=== PATIENT | female | born 1950 | race Hispanic/Latino ===

== ENCOUNTER 2019-11-06 13:37 | Emergency (ER) | payer OTHER, MEDICARE ==
[2019-11-06 14:08] LABS: BASOPHILS % (AUTO) 0.7 % (0.0-5.0); EOSINOPHILS % (AUTO) 1.3 % (0.0-8.0); HEMATOCRIT 42.6 % (36-48); LYMPHOCYTES % (AUTO) 20.9 % (21.0-51.0); MEAN CORPUSCULAR HEMOGLOBIN 30.9 pg (27.0-33.0); MEAN CORPUSCULAR HGB CONC 33.6 g/dL (32.0-36.0); NEUTROPHILS % (AUTO) 70.9 % (40.0-77.0); PLATELET COUNT (AUTO) 392 K/uL (130-400); RED BLOOD CELL COUNT(AUTO) 4.63 MIL/uL (4.00-5.50); RED CELL DISTRIBUTION WIDTH 13.3 % (11.0-15.5)
[2019-11-06 14:22] LABS: CREATININE 0.8 mg/dL (0.5-1.5); POTASSIUM 4.3 mmol/L (3.5-5.1)
[2019-11-06 14:27] LABS: ALBUMIN 4.2 g/dL (3.5-5.0); BILIRUBIN,TOTAL 0.4 mg/dL (0.2-1.0); TOTAL PROTEIN, SERUM 8.2 g/dL (6.0-8.3)
[2019-11-06] MEDS ORDERED: KETOROLAC TROMETHAMINE 30MG/ML ONE (15:30)
== END 2019-11-06 15:43 | disposition home or self-care (01) ==
LOC: EDH 13:37
DX: R06.02 Shortness of breath (principal); M54.6 Pain in thoracic spine; I10 Essential (primary) hypertension; E78.00 Pure hypercholesterolemia, unspecified; Z85.3 Personal history of malignant neoplasm of breast; Z90.49 Acquired absence of other specified parts of digestive tract
CPT/HCPCS: 36415; 71045; 80053; 82550; 83880; 84484; 85025; 85378; 93005; 96372; 99285; J1885

== ENCOUNTER 2022-09-10 06:43 | Emergency (ER) | payer MEDICARE ==
[~2022-09-10] VITALS: Ht 157.5 cm; Wt 83.6 kg
[2022-09-10 07:28] LABS: APPEARANCE,URINE CLEAR (CLEAR); BILIRUBIN,URINE NEGATIVE (NEGATIVE); COLOR,URINE COLORLESS (YELLOW); GLUCOSE, URINE (UA) NEGATIVE (NEGATIVE); KETONES,URINE NEGATIVE (NEGATIVE); LEUKOCYTE ESTERASE ,URINE 500 Leu/uL (NEGATIVE); NITRATE,URINE NEGATIVE (NEGATIVE); OCCULT BLOOD,URINE NEGATIVE (NEGATIVE); PROTEIN,URINE NEGATIVE (NEGATIVE); UROBILINOGEN,URINE 0.2 mg/dL (0.2-1.0)
[2022-09-10] MEDS ORDERED: ALBUTEROL 0.083% 2.5 MG/3 ML INH IH SCH (07:30)
[2022-09-10 07:32] LABS: SQUAMOUS EPITHELIAL CELL,UR FEW /HPF (0-2); WBC,URINE 26-50 /HPF (0-1)
[2022-09-10 07:42] LABS: BASOPHILS % (AUTO) 0.5 % (0.0-5.0); EOSINOPHILS % (AUTO) 1.6 % (0.0-8.0); HEMATOCRIT 37.9 % (36-48); LYMPHOCYTES % (AUTO) 24.6 % (21.0-51.0); MEAN CORPUSCULAR HEMOGLOBIN 30.7 pg (27.0-33.0); MEAN CORPUSCULAR VOLUME 90.2 fL (79-99); MONOCYTES % (AUTO) 9.5 % (3.0-13.0); NEUTROPHILS % (AUTO) 63.4 % (40.0-77.0); PLATELET COUNT (AUTO) 384 K/uL (130-400); RED CELL DISTRIBUTION WIDTH 13.1 % (11.0-15.5)
[2022-09-10 08:00] LABS: ALBUMIN 4.1 g/dL (3.5-5.0); CREATININE 0.8 mg/dL (0.5-1.5); POTASSIUM 3.4 mmol/L (3.5-5.1); TOTAL PROTEIN, SERUM 7.7 g/dL (6.0-8.3)
[2022-09-10 08:11] LABS: B-TYPE NATRIURETIC PEPTIDE 20 pg/mL (0-100)
[2022-09-10] MEDS ORDERED: IOHEXOL 350 MG/ML 100ML INFUS..BTL IV ONE (10:12)
[2022-09-10] MEDS ORDERED: AUD IH (11:31)
[2022-09-10] MEDS ORDERED: PRED50TA2 PO (11:31)
[2022-09-10] MEDS ORDERED: ALBUHFA IH (11:31)
[2022-09-10 11:54] VITALS: BP 125/72
== END 2022-09-10 11:58 | disposition home or self-care (01) ==
LOC: EDH 06:43
DX: J98.01 Acute bronchospasm (principal); R06.00 Dyspnea, unspecified; I10 Essential (primary) hypertension; E78.00 Pure hypercholesterolemia, unspecified; M19.90 Unspecified osteoarthritis, unspecified site; Z90.49 Acquired absence of other specified parts of digestive tract; Z20.822 Contact with and (suspected) exposure to COVID-19
CPT/HCPCS: 99285; 71270; 71045; 87635; 84484; 80053; 83880; 85025; 87088; 87804 ×2; 81001; 36415; 93005; 94640; C9803; Q9967

== ENCOUNTER 2023-01-05 23:38 | Emergency (ER) | payer MEDICARE ==
[~2023-01-05] VITALS: Ht 165.1 cm; Wt 82.1 kg
[~2023-01-05 23:38] MED LIST: ALBUHFA IH; AMOX875T2 PO; AUD IH; PRED50TA2 PO
[2023-01-05 23:44] VITALS: BP 177/78; PULSE 110; RESP 20
[2023-01-06 00:30] LABS: RAPID GROUP A STREP negative (NEGATIVE)
[2023-01-06 00:31] LABS: SARS-CoV-2, RNA, NAAT POSITIVE SARS CoV-2 (NEGATIVE)
[2023-01-06 00:37] LABS: CREATININE 0.7 mg/dL (0.5-1.5); POTASSIUM 4.2 mmol/L (3.5-5.1)
[2023-01-06 00:40] LABS: INFLUENZA TYPE A Negative For Type A (NEGATIVE); INFLUENZA TYPE B Negative For Type B (NEGATIVE)
[2023-01-06 00:40] LABS: BASOPHILS # (AUTO) 0.04 K/uL (0.00-0.20); BASOPHILS % (AUTO) 0.4 % (0.0-5.0); EOSINOPHILS # (AUTO) 0.08 K/uL (0.00-0.70); EOSINOPHILS % (AUTO) 0.9 % (0.0-8.0); HEMATOCRIT 40.6 % (36-48); IMMATURE GRANULOCYTE ABSOLUTE 0.05 K/uL (0-1); LYMPHOCYTES # (AUTO) 0.7 K/uL (1.0-4.8); LYMPHOCYTES % (AUTO) 7.7 % (21.0-51.0); MEAN CORPUSCULAR HEMOGLOBIN 31.6 pg (27.0-33.0); MEAN CORPUSCULAR HGB CONC 33.5 g/dL (32.0-36.0); MEAN CORPUSCULAR VOLUME 94.4 fL (79-99); MONOCYTES % (AUTO) 11.1 % (3.0-13.0); NEUTROPHILS # (AUTO) 7.4 K/uL (1.8-7.7); NEUTROPHILS % (AUTO) 79.4 % (40.0-77.0); PLATELET COUNT (AUTO) 281 K/uL (130-400); RED CELL DISTRIBUTION WIDTH 13.4 % (11.0-15.5); WHITE BLOOD COUNT (AUTO) 9.3 K/uL (4.8-10.8)
[2023-01-06 00:41] LABS: ALBUMIN 3.9 g/dL (3.5-5.0); BILIRUBIN,TOTAL 0.5 mg/dL (0.2-1.0)
[2023-01-06] MEDS ORDERED: IBUP-1493 PO (01:50)
[2023-01-06] MEDS ORDERED: PRED20TA3 PO (01:50)
[2023-01-06] MEDS ORDERED: ALBU90AE2 IH (01:50)
[2023-01-06] MEDS ORDERED: NIRM1TAB PO (01:50)
== END 2023-01-06 02:14 | disposition home or self-care (01) ==
LOC: EDH 23:38
DX: U07.1 COVID-19 (principal); E78.00 Pure hypercholesterolemia, unspecified; I10 Essential (primary) hypertension; M19.90 Unspecified osteoarthritis, unspecified site; Z79.52 Long term (current) use of systemic steroids; Z85.3 Personal history of malignant neoplasm of breast; Z90.49 Acquired absence of other specified parts of digestive tract
CPT/HCPCS: 99284; 71045; 87635; 80053; 85025; 87880; 87804 ×2; 36415; C9803

== ENCOUNTER 2023-06-11 23:37 | Emergency (ER) | payer MEDICARE ==
[~2023-06-11] VITALS: Ht 152.4 cm; Wt 81.6 kg
[~2023-06-11 23:37] MED LIST changes: +ALBU90AE2 IH; +IBUP-1493 PO; +NIRM1TAB PO; +PRED20TA3 PO
[2023-06-12] MEDS ORDERED: KETOROLAC 60 MG VIAL (30MG/ML) IM ONE (00:30)
[2023-06-12] MEDS ORDERED: IBUP-1493 PO (01:30)
[2023-06-12 02:18] VITALS: BP 132/74; PULSE 78; RESP 20; O2SAT 99
== END 2023-06-12 02:19 | disposition home or self-care (01) ==
LOC: EDH 23:37
DX: S92.352A Displaced fracture of fifth metatarsal bone, left foot, initial encounter for closed fracture (principal); I10 Essential (primary) hypertension; E78.00 Pure hypercholesterolemia, unspecified; M19.90 Unspecified osteoarthritis, unspecified site; Z90.49 Acquired absence of other specified parts of digestive tract; Z79.899 Other long term (current) drug therapy; Z98.890 Other specified postprocedural states; W18.39XA Other fall on same level, initial encounter; Y93.89 Activity, other specified; Y92.89 Other specified places as the place of occurrence of the external cause; Y99.8 Other external cause status
CPT/HCPCS: 99284; 73610 ×2; 73630; 29515; 96372; J1885

== ENCOUNTER 2024-07-20 21:09 | Emergency (ER) | payer MEDICARE ==
[~2024-07-20] VITALS: Ht 165.1 cm; Wt 87.1 kg
[~2024-07-20 21:09] MED LIST changes: -ALBU90AE2 IH; +ALBU90AE3 IH; -ALBUHFA IH; -AMOX875T2 PO; -AUD IH; +DICL20GE TP; +FOSF3PAC4 PO; -NIRM1TAB PO; -PRED20TA3 PO; -PRED50TA2 PO
--- NOTE | 2024-07-20 22:19 | ERN ---
ED Note History of Present Illness Stated Complaint: SWOLLEN LEG Chief Complaint: Knee Injury/Swelling Time Seen by MD: 21:10 Dictation: This is a 74-year-old female who presented to the emergency room with complaints of right knee pain and swelling for the past 2 weeks. She has had this pain for many years and multiple joints hurt all the time however the right knee pain worsened where she is using the cane she took Tylenol at 6:00 p.m.. She reported that she has had multiple injections into her knee in [place]. She denied any recent fall. No fevers chills or rigors. No redness in the joint area Temperature 98.1 pulse 80 respirations 16 blood pressure 166/73 pulse oximetry 96% on room air Her chronic medical problems include hypertension, hypercholesterolemia, right- sided breast cancer status post mastectomy and severe osteoarthritis of multiple joints. Allergies: Coded Allergies: No Known Drug Allergies (Unverified Allergy, Unknown, 11/06/19) Home Meds Active Scripts Tramadol Hcl (Tramadol HCl) 50 Mg Tablet, 50 MG PO TID for pain, #15 TAB Prov:GUICHO YOUSSEF MD 07/20/24 Diclofenac Sodium (Voltaren Arthritis Pain) 1 % Gel..gram., 1 APPL TP BID for 30 Days, #400 GM apply to affected foot Prov:LAUREN LUCAS 08/07/23 Fosfomycin Tromethamine (Fosfomycin Tromethamine) 3 Gram Packet, 3 GM PO ONCE for 1 Day, #1 PKT Prov:LAUREN LUCAS 08/07/23 Ibuprofen (Motrin/Advil) 800 Mg Tab, 800 MG PO TID, #30 TAB Prov:IRMA ELLIS MD 01/06/23 Albuterol Sulfate (Proair Digihaler) 90 Mcg Aer.pw.bas, 2 PUFF IH QID, #1 UNIT Prov:IRMA ELLIS MD 01/06/23 Past Medical History Past Medical History: Cancer (Right breast cancer), High Cholesterol, Hypertension, Other Additional Past Medical Hx: HX BREAST CA Surgical History: Cholecystectomy, BTL Surgical History Other: RT MASTECTOMY Family History: Negative Social History: Negative, Lives with family History: Not Applicable RN Note Reviewed/Agreed w/PFSH: Yes Review of System Dictation Constitutional: Negative for fever,chills, and weight loss Eyes: Negative for injury, pain,redness, and discharge ENT: Negative for injury,pain or swelling Cardiovascular: Negative for chest pain, palpitations, and edema Respiratory: Negative for shortness of breath, cough, and wheezing, Abdomen/GI: Negative for abdominal pain, nausea, vomiting, diarrhea, and constipation Back: Negative for injury and pain : Negative for injury, bleeding and discharge MS/Extremity: Negative for injury and deformity right knee joint pain and having difficulty walking due to pain Skin: Negative for rash, and discoloration Neuro: Negative for headache, weakness, numbness, tingling, and seizure Psych: Negative for suicide ideation, homicidal ideation, and hallucinations Initial Vital Sign VS Vital Signs Date Time Temp Pulse Resp B/P (MAP) Pulse Ox O2 Delivery O2 Flow Rate FiO2 07/20/24 21:10 98.1 80 16 166/73 96 Room Air Physical Exam Dictation General: awake, alert, NAD overweight female Head/Face: Normocephalic, atraumatic Eyes: PERRL, EOMI, vision at baseline ENT: oral cavity clear, TMs clear, no signs of infection Neck: Trachea midline, supple, no nuchal rigidity Cardiovascular: RRR, normal S1/S2, No MRGs, no JVD Respiratory: CTAB, no respiratory distress, No rales or wheezes Abdomen: Soft, non-tender, non-distended, normal bowel sounds, no guarding or rebound. Skin: Warm, dry, normal turgor, no rash MS/Extremity: Pulses equal, no cyanosis, neurovascular intact, FROM both knees appear around the same sized to me no erythema or obvious signs of inflammation. Some tenderness during the range of motion however patient is still able to walk with cane Neuro: COAx4, GCS 15, strength 5/5, CN 2-12 intact, normal cerebellar exam, normal gait, Psych: Normal behavior, mood, and affect normal Extremities-trace edema without any palpable cords, Homans sign is negative Results (Laboratory/Radiology) Labs Reviewed?: Yes ED Course ED Course Orders Procedure Category Date Status Time Knee 3vws Rt RAD 07/20/24 Taken 21:21 Ketorolac PHA 07/20/24 Complete Tromethamine 30mg/Ml 22:30 Current Medications Medications (Trade) Dose Ordered Sig/Tito Route PRN Reason Start Time Stop Time Status Last Admin Dose Admin Ketorolac Tromethamine (toRADol) 30 mg ONCE ONCE IM 07/20/24 22:30 07/20/24 22:31 DC 07/20/24 23:09 Vital Signs Date Time Temp Pulse Resp B/P (MAP) Pulse Ox O2 Delivery O2 Flow Rate FiO2 07/20/24 21:10 98.1 80 16 166/73 96 Room Air We will perform imaging and administer medications according to the patient's complaint. Once the results are available, will review and personally interpreted the labs to rule out any acute life-threatening emergency the trach require immediate intervention and treatment. I will then re-evaluate the patient after treatment and diagnostic exams have return to determine whether the patient requires any further testing, can safely be discharged home or need further admission to hospital for additional treatment and evaluation. 11:00 p.m. patient had right knee x-ray that shows severe joint space narrowing no evidence of any soft tissue swelling and I did not appreciate any obvious fractures or dislocations. I had a long discussion with the patient and family member and updated them on the x-ray findings as well as referral to orthopedic surgery. JULIANO Zarco for now until she sees the orthopedic fashion and her PCP Medical Decision Making MDM MDM: Differential diagnosis: Osteoarthritis, joint effusion, hematoma, fracture or dislocation Rationale: Tests considered and ordered secondary to shared decision making include: Previous outside records reviewed: Old ER visits. Risk of complication and/or morbidity or mortality of patient management: None Medications-Per medication reconciliation Need for hospitalization: Patient does not meet criteria for hospitalization. Need for emergency major/minor surgery: No There are no social concerns with this patient. Prescription drug management Prescriptions will include symptomatic care Patient's prior external medical records from other ER visits were reviewed by me as indicated. Prior testing and results from previous visits were reviewed. Prior tests were taken into account with medical decision making and resource utilization, independent historian/historians were used to obtain complete medical history. I independently interpreted the test that were performed, results were reviewed by me and considered findings on radiology if ordered. Medical management and examination interpretation discussions were had by me with other qualified healthcare professionals as indicated for the patient's care. Problem List Problem List: (1) Primary osteoarthritis of right knee (2) Chronic pain of right knee DX & DISP Disposition: Discharge Departure Impression: Primary Impression: Primary osteoarthritis of right knee Additional Impression: Chronic pain of right knee Condition: Stable Scripts Tramadol Hcl (Tramadol HCl) 50 Mg Tablet 50 MG PO TID for pain, #15 TAB Prov: GUICHO YOUSSEF MD 07/20/24 Additional Instructions: Patient and the caregiver have been informed of all the diagnostic tests and the imaging conducted during the today's visit to the emergency room and has verbalized understanding of the results I have personally reviewed and interpreted all diagnostic exams performed here in the ER today as well as the vital signs documented by the nursing staff. The patient is now being discharged to home and should follow up with the primary care physician or the specialist as directed by the ER staff. Follow-up with primary care provider in 1 to 2 days. Take medications as directed here in the emergency room. Okay to continue home medications unless otherwise discussed during your visit in the emergency room today. Return to your nearest emergency room if symptoms worsen or if there is no improvement. Call 911 if you need immediate assistance. Take Tylenol or Motrin [id number] as needed and if no contraindications are present. Increase oral hydration. A wound culture or urine culture was ordered here in the emergency room department please follow-up with primary care provider and advise them to get repeat ports from our facility. If you had any Dino wrap/splints that were applied here, please do not remove them until you see your primary care or specialty. Referrals: SAMARA PRABHAKAR MD (PCP) ELENI WILLSON MD, ANURADHA R MD Jul 20, 2024 22:19
--- NOTE | 2024-07-20 22:23 | NUR ---
PT SITTING ALONG WINDOWS WITH FAMILY. GOOD CHEST RISE AND FALL NOTED. NO ACUTE DISTRESS NOTED AT THIS TIME
[2024-07-20] MEDS: ketOROlac 30MG VIAL (30MG/ML) IM ONE (23:09)
[2024-07-20] MEDS ORDERED: TRAM50TA4 PO (23:29)
[2024-07-20 23:33] VITALS: BP 158/75; PULSE 82; RESP 17; TEMP 98.4; O2SAT 97
--- NOTE | 2024-07-21 08:52 | HMCIMG ---
Exam Type: KNEE 3VWS RT Clinical Information: pain and swelling of Knee joint Comparison: None Findings: The bone examination is unremarkable. No fractures or dislocations are seen. No radiopaque foreign bodies are noted. Soft tissues are preserved. IMPRESSION: Normal examination.
== END 2024-07-20 23:39 | disposition home or self-care (01) ==
LOC: EDH 21:09
DX: M17.11 Unilateral primary osteoarthritis, right knee (principal); G89.29 Other chronic pain; M25.561 Pain in right knee; E78.00 Pure hypercholesterolemia, unspecified; I10 Essential (primary) hypertension; Z79.1 Long term (current) use of non-steroidal anti-inflammatories (NSAID); Z90.49 Acquired absence of other specified parts of digestive tract; Z98.51 Tubal ligation status
CPT/HCPCS: 99283; 73562; 96372; J1885

== ENCOUNTER 2024-07-25 20:54 | Emergency (ER) | payer MEDICARE ==
[~2024-07-25] VITALS: Ht 165.1 cm; Wt 86.2 kg
[~2024-07-25 20:54] MED LIST changes: +TRAM50TA4 PO
--- NOTE | 2024-07-25 21:19 | ERN ---
ED Note History of Present Illness Stated Complaint: DIZZINESS Chief Complaint: Dizzy/Light Headed Time Seen by MD: 21:15 Time Seen by Midlevel: 21:17 Dictation: Ms Burk is a 74 year old female with history of hypertension, arthritis, breast cancer, and obesity who wanted to the emergency department this evening with her daughter for evaluation of dizziness. She reports three days of dizziness and lightheadedness numbness. She states she feels like she is wobbly worse with position change. Over the past 24 hours the symptoms have worsened and she feels like she may have had a fever at home, diffuse abdominal pain, nausea, vomiting, and intermittent chest pain. No report of congestion, sore throat, shortness of breath, cough, palpitations, edema, hematemesis, melena, hematochezia, constipation, diarrhea, dysuria, headache, or focal weakness paresthesia. She denies history of stroke or heart attack. She denies history of previous episodes of dizziness. PCP: Dr. Samara Rodrigues in [place] Allergies: Coded Allergies: No Known Drug Allergies (Unverified Allergy, Unknown, 11/06/19) Home Meds Active Scripts Tramadol Hcl (Tramadol HCl) 50 Mg Tablet, 50 MG PO TID for pain, #15 TAB Prov:GUICHO SOFIA MD 07/20/24 Diclofenac Sodium (Voltaren Arthritis Pain) 1 % Gel..gram., 1 APPL TP BID for 30 Days, #400 GM apply to affected foot Prov:LAUREN LUCAS 08/07/23 Fosfomycin Tromethamine (Fosfomycin Tromethamine) 3 Gram Packet, 3 GM PO ONCE for 1 Day, #1 PKT Prov:LAUREN LUCAS 08/07/23 Ibuprofen (Motrin/Advil) 800 Mg Tab, 800 MG PO TID, #30 TAB Prov:IRMA ELLIS MD 01/06/23 Albuterol Sulfate (Proair Digihaler) 90 Mcg Aer.pw.bas, 2 PUFF IH QID, #1 UNIT Prov:IRMA ELLIS MD 01/06/23 Past Medical History Past Medical History: Arthritis, Hypertension Additional Past Medical Hx: HX BREAST CA Surgical History: Hysterectomy, Cholecystectomy, Other Surgical History Other: RIGHT MASTECTOMY Family History: Negative Social History: Negative, Lives with family History: Not Applicable RN Note Reviewed/Agreed w/PFSH: Yes Review of System Dictation REVIEW OF SYSTEMS: CONSTITUTIONAL: Patient denies chills, sweats and weight changes. Reports fatigue, general weakness, and felt like she may have had a fever while at home EYES: Patient denies any visual symptoms. EARS, NOSE, AND THROAT: No difficulties with hearing. No symptoms of rhinitis or sore throat. CARDIOVASCULAR: Patient denies palpitations, orthopnea and paroxysmal nocturnal dyspnea. Reports intermittent non radiating chest pain RESPIRATORY: No dyspnea on exertion, no wheezing or cough. GI: No diarrhea, constipation, hematochezia or melena. Reports nonspecific diffuse abdominal pain with nausea and emesis x1 : No urinary hesitancy or dribbling. No nocturia or urinary frequency. No abnormal urethral discharge. MUSCULOSKELETAL: No myalgias or arthralgias. NEUROLOGIC: No chronic headaches, no seizures. Patient denies numbness, tingling or weakness. Denies dysarthria or dysphasia. Denies visual disturbance. Reports lightheadedness/dizziness worse with position change. PSYCHIATRIC: Patient denies problems with mood disturbance. No problems with anxiety. ENDOCRINE: No excessive urination or excessive thirst. DERMATOLOGIC: Patient denies any rashes or skin changes. Initial Vital Sign VS Vital Signs Date Time Temp Pulse Resp B/P (MAP) Pulse Ox O2 Delivery O2 Flow Rate FiO2 07/25/24 20:55 97.3 91 20 173/83 97 Room Air 07/25/24 22:33 0 21 Physical Exam Dictation Vital signs: Reviewed. Afebrile Constitutional: No acute distress. Non-toxic appearing. Head/Face: Normocephalic, atraumatic. Eyes: Periorbital areas with no swelling, redness, or edema. Lids and lashes are normal. Conjunctival injection is absent. Sclera anicteric. Pupils equal, round, reactive to light. ENT: Pinnas intact and no signs of trauma or erythema. Ear canals clear and no discharge. TMs no erythema. No nasal discharge or bleeding noted. Oropharynx with no exudate, redness, swelling, masses, exudates, or evidence of obstruction. Uvula midline. Mucous membranes moist. Neck: Trachea midline, no masses palpated, and no cervical lymphadenopathy. No swelling. Supple, full range of motion. Chest/Axilla: No tenderness, no crepitus, no paradoxical movement, no retractions. Cardiovascular: Regular rate, regular rhythm, no murmur, no gallops. Symmetric pulses. No peripheral edema. Blood pressure elevated 173/83. Twelve lead EKG reflects a sinus rhythm without ST elevation or depression. No chest pain at this time. Respiratory: Respirations even and unlabored. Lung sounds clear; no wheezes, rales or rhonchi. Room air SpO2 97% Gastrointestinal: Obese No distention is appreciated. Bowel sounds are normal. No mass or organomegaly . There is no tenderness. No rebound. No rigidity. No voluntary or involuntary guarding. No Jiménez's sign. Neurological: Normal speech, gross motor function intact, gross sensory functi on intact. No focal weakness/Paresthesia. NIHSS=0. Musculoskeletal/Extremities: All extremities have full range of motion, no pain or tenderness on palpation. Symmetric pulses. Ambulating with steady gait; uses a cane. Integumentary: Intact. Skin is normal color, warm and dry. Cap refill less than 3 seconds. Results (Laboratory/Radiology) Laboratory/Radiology Laboratory Tests Test 07/25/24 21:30 07/25/24 22:31 07/26/24 00:03 White Blood Count 8.8 K/uL (4.8-10.8) Red Blood Count 4.07 MIL/uL (4.00-5.50) Hemoglobin 12.6 g/dL (12.0-16.0) Hematocrit 37.8 % (36-48) Mean Corpuscular Volume 92.9 fL (79-99) Mean Corpuscular Hemoglobin 31.0 pg (27.0-33.0) Mean Corpuscular Hemoglobin Concent 33.3 g/dL (32.0-36.0) Red Cell Distribution Width 12.9 % (11.0-15.5) Platelet Count 467 K/uL (130-400) H Mean Platelet Volume 10.0 fL (7.5-10.5) Immature Granulocyte % (Auto) 0.2 % (0-1) Neutrophils (%) (Auto) 64.1 % (40.0-77.0) Lymphocytes (%) (Auto) 23.5 % (21.0-51.0) Monocytes (%) (Auto) 9.7 % (3.0-13.0) Eosinophils (%) (Auto) 1.9 % (0.0-8.0) Basophils (%) (Auto) 0.6 % (0.0-5.0) Neutrophils # (Auto) 5.6 K/uL (1.8-7.7) Lymphocytes # (Auto) 2.1 K/uL (1.0-4.8) Monocytes # (Auto) 0.9 K/uL (0.1-1.0) Eosinophils # (Auto) 0.17 K/uL (0.00-0.70) Basophils # (Auto) 0.05 K/uL (0.00-0.20) Absolute Immature Granulocyte (auto 0.02 K/uL (0-1) Nucleated Red Blood Cells 0.0 % (0.0-0.19) Sodium Level 132 mmol/L (136-145) L Potassium Level 3.9 mmol/L (3.5-5.1) Chloride Level 97 mmol/L (101-111) L Carbon Dioxide Level 27 mmol/L (21-32) Blood Urea Nitrogen 14 mg/dL (7-18) Creatinine 1.0 mg/dL (0.5-1.0) Glomerular Filtration Rate Calc 59 mL/min (>90) Random Glucose 112 mg/dL (70-105) H Total Calcium 9.4 mg/dL (8.5-10.1) Troponin I High Sensitivity 4 ng/L (4-50) B-Type Natriuretic Peptide 15 pg/mL (0-100) Influenza Type A Antigen NEGATIVE FOR TYPE A Influenza Type B Antigen NEGATIVE FOR TYPE B SARS-CoV-2, RNA, NAAT POSITIVE SARS CoV-2 Urine Color COLORLESS (YELLOW) Urine Appearance CLEAR (CLEAR) Urine pH 5.5 (5.0-8.0) Urine Specific [place] 1.004 (1.001-1.031) Urine Protein NEGATIVE mg/dL (NEGATIVE) Urine Glucose (UA) NEGATIVE mg/dL (NEGATIVE) Urine Ketones NEGATIVE mg/dL (NEGATIVE) Urine Occult Blood NEGATIVE (NEGATIVE) Urine Nitrate NEGATIVE (NEGATIVE) Urine Bilirubin NEGATIVE mg/dL (NEGATIVE) Urine Urobilinogen 0.2 mg/dL (0.2-1.0) Urine Leukocyte Esterase 250 Kirstie/uL (NEGATIVE) H Urine RBC 0-1 /HPF (0-1) Urine WBC 11-25 /HPF (0-1) H Urine Squamous Epithelial Cells RARE /HPF (0-2) Urine Bacteria MANY /HPF (None Seen) Labs Reviewed?: Yes EKG Comment: EKG Interpretation: Time Reviewed: 2123 Ventricular rate: 76 bpm VT Interval: 194 ms QRS duration: [1000] ms No ST segment elevation or depression. Clinical impression: Sinus rhythm EKG Reviewed and interpreted by Dr. Selena Sofia CT Scan Comment: PATIENT: SHARMIN BURK MR#: [id number] : 1950 SEX: F AGE: 74 LOCATION: [facility] ORDER 18 STATUS: [facility] REPORT#: [id number] SERVICE 17 REASON: dizziness, persistent ORDERING PHYSICIAN: LUIS MANUEL HECK NP PROCEDURE: HEAD WO - CT HEAD/BRAIN W/O CONTRAST CT HEAD/BRAIN W/O CONTRAST HISTORY: Dizziness COMPARISON: None TECHNIQUE: Multiple sequential axial images of the head were obtained from the base of the skull through vertex. Patient was not given contrast through intravenous route. FINDINGS: The ventricles and extraventricular CSF spaces are dilated consistent with cerebral atrophy. Nonspecific white matter changes seen. There is no midline shift, mass effect or herniation. No acute intracranial bleed is seen. Visualized portion of the paranasal sinuses are grossly within normal limits. IMPRESSION: 1. No acute intracranial bleed is seen. 2. Atrophy with white matter changes. CT was performed with one or more following dose reduction techniques: automated exposure control, adjustment of the mA and kv according to patient's size, or use of a iterative reconstruction technique. DICTATED BY: ELFEGO DAVIS MD DATE: 07/25/242216 ELECTRONICALLY SIGNED BY: ELFEGO DAVIS MD DATE: 07/25/242222 ED Course ED Course Orders Procedure Category Date Status Time Ct Head/Brain W/O CT 07/25/24 Resulted Contrast 21:18 Cbc With Differential LAB 07/25/24 Complete 21:18 Basic Metabolic Panel LAB 07/25/24 Complete 21:18 Troponin I High LAB 07/25/24 Complete Sensitivity 21:18 12 Lead Ekg Tracing- EKG 07/25/24 Complete Technical 21:18 Urinalysis Profile LAB 07/25/24 Complete 21:18 B-Type Natriuretic LAB 07/25/24 Complete Peptide 21:23 Influenza Type A & B, LAB 07/25/24 Complete Rapid 21:23 Covid Rna Naat LAB 07/25/24 Complete 21:23 0.9% Nacl 500ml PHA 07/25/24 Complete Iv.Soln (Ns 500ml 23:00 Culture Urine GABBI 07/26/24 In Process 00:32 Current Medications Medications (Trade) Dose Ordered Sig/Tito Route PRN Reason Start Time Stop Time Status Last Admin Dose Admin Sodium Chloride 500 ml @ 0 mls/hr ONCE ONCE IV 07/25/24 23:00 07/25/24 23:01 DC 07/26/24 00:08 Vital Signs Date Time Temp Pulse Resp B/P (MAP) Pulse Ox O2 Delivery O2 Flow Rate FiO2 07/26/24 00:17 98.2 62 18 110/67 96 Room Air* 0 21 07/25/24 22:33 98.4 71 17 137/53 96 Room Air* 0 21 07/25/24 20:55 97.3 91 20 173/83 97 Room Air Uneventful ED course. Vital signs stable; afebrile and normotensive with room air SpO2 96-97%. CT head negative for ic hemorrhage. Laboratory findings as noted below. Influenza A/B negative. Positive COVID. Troponin is not elevated BNP is not elevated. WBCs are not elevated. H&H are stable. No electrolyte derangement. UA + leukocyte esterase, and UWBC 11-25; culture pending. While in the emergency department she received dose NS 500 mL IV as bolus and states she is feeling better. She also received initial dose of antibiotics Rocephin1 g IV. She will be discharged to home with family. Medical Decision Making MDM MDM: Differential diagnosis: Influenza, COVID, UTI, intracranial hemorrhage Rationale: Tests considered and ordered secondary to shared decision making include: Lab, UA, EKG, CT scan Previous outside records reviewed: Old ER visits. Risk of complication and/or morbidity or mortality of patient management: None Medications-Per medication reconciliation Need for hospitalization: Patient does not meet criteria for hospitalization. Need for emergency major/minor surgery: No There are no social concerns with this patient. Prescription drug management: Nitrofurantoin, ondansetron Prescriptions will include symptomatic care Patient's prior external medical records from other ER visits were reviewed by me as indicated. Prior testing and results from previous visits were reviewed. Prior tests were taken into account with medical decision making and resource utilization, independent historian/historians were used to obtain complete medical history. I independently interpreted the test that were performed, results were reviewed by me and considered findings on radiology if ordered. Medical management and examination interpretation discussions were had by me with other qualified healthcare professionals as indicated for the patient's care. DX & DISP Disposition: Discharge Departure Impression: Primary Impression: Viral infection Additional Impressions: COVID-19, Mild dehydration, Dizziness, UTI (urinary tract infection) Condition: Stable Scripts Ondansetron (Ondansetron Odt) 4 Mg Tab.rapdis 4 MG PO Q6HPRN PRN for nausea, #15 TAB 0 Refills Prov: LUIS MANUEL HECK NP 07/26/24 Nitrofurantoin Macrocrystal (Nitrofurantoin) 100 Mg Capsule 1 CAP PO BID for 7 Days, #14 CAP 0 Refills Prov: LUIS MANUEL HECK NP 07/26/24 Additional Instructions: Rest. Isolate at home until symptoms are resolving and your fever free times 24 hour. Drink plenty of fluids. May take Zofran ODT as needed for nausea. May take [id number]-[id number] Tylenol or ibuprofen as needed for fever or discomfort. Referrals: SAMARA RODRIGUES MD (PCP) Time of Disposition: 23:55 LUIS MANUEL HECK NP Jul 25, 2024 21:19
--- NOTE | 2024-07-25 21:27 | EKG ---
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
[2024-07-25 21:55] LABS: BASOPHILS # (AUTO) 0.05 K/uL (0.00-0.20); BASOPHILS % (AUTO) 0.6 % (0.0-5.0); EOSINOPHILS # (AUTO) 0.17 K/uL (0.00-0.70); EOSINOPHILS % (AUTO) 1.9 % (0.0-8.0); HEMATOCRIT 37.8 % (36-48); IMMATURE GRANULOCYTE ABSOLUTE 0.02 K/uL (0-1); LYMPHOCYTES # (AUTO) 2.1 K/uL (1.0-4.8); LYMPHOCYTES % (AUTO) 23.5 % (21.0-51.0); MEAN CORPUSCULAR HGB CONC 33.3 g/dL (32.0-36.0); MEAN CORPUSCULAR VOLUME 92.9 fL (79-99); MONOCYTES # (AUTO) 0.9 K/uL (0.1-1.0); MONOCYTES % (AUTO) 9.7 % (3.0-13.0); NEUTROPHILS # (AUTO) 5.6 K/uL (1.8-7.7); NEUTROPHILS % (AUTO) 64.1 % (40.0-77.0); PLATELET COUNT (AUTO) 467 K/uL (130-400); RED BLOOD CELL COUNT(AUTO) 4.07 MIL/uL (4.00-5.50); RED CELL DISTRIBUTION WIDTH 12.9 % (11.0-15.5); WHITE BLOOD COUNT (AUTO) 8.8 K/uL (4.8-10.8)
[2024-07-25 21:59] LABS: POTASSIUM 3.9 mmol/L (3.5-5.1)
--- NOTE | 2024-07-25 22:23 | HMCIMG ---
CT HEAD/BRAIN W/O CONTRAST HISTORY: Dizziness COMPARISON: None TECHNIQUE: Multiple sequential axial images of the head were obtained from the base of the skull through vertex. Patient was not given contrast through intravenous route. FINDINGS: The ventricles and extraventricular CSF spaces are dilated consistent with cerebral atrophy. Nonspecific white matter changes seen. There is no midline shift, mass effect or herniation. No acute intracranial bleed is seen. Visualized portion of the paranasal sinuses are grossly within normal limits. IMPRESSION: 1. No acute intracranial bleed is seen. 2. Atrophy with white matter changes. CT was performed with one or more following dose reduction techniques: automated exposure control, adjustment of the mA and kv according to patient's size, or use of a iterative reconstruction technique.
[2024-07-25 22:59] LABS: SARS-CoV-2, RNA, NAAT POSITIVE SARS CoV-2 (NEGATIVE)
[2024-07-25 23:15] LABS: INFLUENZA TYPE A NEGATIVE FOR TYPE A (NEGATIVE); INFLUENZA TYPE B NEGATIVE FOR TYPE B (NEGATIVE)
[2024-07-26] MEDS: 0.9% NACL 500ML IV.SOLN 500 ML IV ONE (00:08)
[2024-07-26 00:23] LABS: APPEARANCE,URINE CLEAR (CLEAR); BILIRUBIN,URINE NEGATIVE (NEGATIVE); COLOR,URINE COLORLESS (YELLOW); GLUCOSE, URINE (UA) NEGATIVE (NEGATIVE); KETONES,URINE NEGATIVE (NEGATIVE); LEUKOCYTE ESTERASE ,URINE 250 Leu/uL (NEGATIVE); NITRATE,URINE NEGATIVE (NEGATIVE); OCCULT BLOOD,URINE NEGATIVE (NEGATIVE); PH,URINE 5.5 (5.0-8.0); PROTEIN,URINE NEGATIVE (NEGATIVE); UROBILINOGEN,URINE 0.2 mg/dL (0.2-1.0)
[2024-07-26 00:32] LABS: ADD UA MICROSCOPIC YES
[2024-07-26 00:38] LABS: BACTERIA,URINE MANY /HPF (None Seen); MUCUS,URINE RARE LPF (None Seen); RBC,URINE 0-1 /HPF (0-1); SQUAMOUS EPITHELIAL CELL,UR RARE /HPF (0-2)
[2024-07-26] MEDS ORDERED: ONDA-243 PO (00:50)
[2024-07-26] MEDS ORDERED: NITR100C PO (00:50)
[2024-07-26] MEDS: cefTRIAXone 1G VIAL IVPB ONE (01:19)
[2024-07-26 01:32] VITALS: BP 119/59; PULSE 57; RESP 17; TEMP 98.3; O2SAT 96
== END 2024-07-26 01:37 | disposition home or self-care (01) ==
LOC: EDH 20:54
DX: U07.1 COVID-19 (principal); B34.9 Viral infection, unspecified; E86.0 Dehydration; R42 Dizziness and giddiness; N39.0 Urinary tract infection, site not specified; I10 Essential (primary) hypertension; M19.90 Unspecified osteoarthritis, unspecified site; Z79.1 Long term (current) use of non-steroidal anti-inflammatories (NSAID); Z85.3 Personal history of malignant neoplasm of breast; Z90.49 Acquired absence of other specified parts of digestive tract; Z90.710 Acquired absence of both cervix and uterus
CPT/HCPCS: 99285; 70450; 87635; 84484; 80048; 83880; 85025; 87086 ×2; 87186; 87804 ×2; 81001; 36415; 93005; 96374; J7040; J0696

== ENCOUNTER 2024-12-19 14:36 | Inpatient (IN) | payer MEDICARE, MEDICAID ==
[~2024-12-19] VITALS: Ht 165.1 cm; Wt 83.5 kg
[~2024-12-19 14:36] MED LIST changes: +NITR100C PO; +ONDA-243 PO
[2024-12-19 15:12] LABS: IMMATURE GRANULOCYTE ABSOLUTE 0.07 K/uL (0-1); NUCLEATED RED BLOOD CELLS 0.0 % (0.0-0.19); PLATELET COUNT (AUTO) 380 K/uL (130-400); RED BLOOD CELL COUNT(AUTO) 3.72 MIL/uL (4.00-5.50); RED CELL DISTRIBUTION WIDTH 13.8 % (11.0-15.5); WHITE BLOOD COUNT (AUTO) 14.1 K/uL (4.8-10.8)
[2024-12-19 15:19] LABS: CREATININE 0.9 mg/dL (0.5-1.0); GLOMERULAR FILTR. RATE CALC 67.0 mL/min (>90); GLUCOSE,RANDOM 89.0 mg/dL (70-105); SODIUM SERUM 138.0 mmol/L (136-145); UREA NITROGEN, BLOOD 11.0 mg/dL (7-18)
--- NOTE | 2024-12-19 16:19 | HMCIMG ---
EXAM: US Chest Limited, Evaluate for Pleural Effusion. CLINICAL HISTORY: left breast wound TECHNIQUE: Real-time ultrasound of the chest to evaluate for pleural effusion. COMPARISON: None provided. FINDINGS: There is a 2.1 x 1.4 x 0.6 cm complex fluid collection in the left chest wall which may be due to abscess and/or hematoma. IMPRESSION: As above. /[place]
--- NOTE | 2024-12-19 16:44 | ERN ---
General Chief Complaint: Abscess Stated Complaint: ABSCESS Time Seen by MD: 14:38 Source: patient History of Present Illness Initial Comments Patient is a 70-year-old female coming in a left breast patient was told that she had an abscess Allergies: Coded Allergies: No Known Drug Allergies (Unverified Allergy, Unknown, 11/06/19) Home Meds Active Scripts Nitrofurantoin Macrocrystal (Nitrofurantoin) 100 Mg Capsule, 1 CAP PO BID for 7 Days, #14 CAP 0 Refills Prov:GUICHO YOUSSEF MD 11/16/24 Ondansetron (Ondansetron Odt) 4 Mg Tab.rapdis, 4 MG PO Q6HPRN PRN for nausea, #15 TAB 0 Refills Prov:LUIS MANUEL HECK NP 07/26/24 Nitrofurantoin Macrocrystal (Nitrofurantoin) 100 Mg Capsule, 1 CAP PO BID for 7 Days, #14 CAP 0 Refills Prov:LUIS MANUEL HECK NP 07/26/24 Tramadol Hcl (Tramadol HCl) 50 Mg Tablet, 50 MG PO TID for pain, #15 TAB Prov:GUICHO YOUSSEF MD 07/20/24 Diclofenac Sodium (Voltaren Arthritis Pain) 1 % Gel..gram., 1 APPL TP BID for 30 Days, #400 GM apply to affected foot Prov:LAUREN LUCAS 08/07/23 Fosfomycin Tromethamine (Fosfomycin Tromethamine) 3 Gram Packet, 3 GM PO ONCE for 1 Day, #1 PKT Prov:LAUREN LUCAS 08/07/23 Ibuprofen (Motrin/Advil) 800 Mg Tab, 800 MG PO TID, #30 TAB Prov:IRMA ELLIS MD 01/06/23 Albuterol Sulfate (Proair Digihaler) 90 Mcg Aer.pw.bas, 2 PUFF IH QID, #1 UNIT Prov:IRMA ELLIS MD 01/06/23 Past Medical History Past Medical History: Arthritis, High Cholesterol, Hypertension Medical History Other: HX BREAST CA, RIGHT Past Surgical History: Hysterectomy, Cholecystectomy, Other Surgical History Other: RIGHT MASTECTOMY Family History Family History: Negative Social History Social History: Negative, Lives with family Female( History) History: Not Applicable Results Laboratory and Microbiology Lab and Micro Result Laboratory Tests Test 12/19/24 15:05 White Blood Count 14.1 K/uL (4.8-10.8) H Red Blood Count 3.72 MIL/uL (4.00-5.50) L Hemoglobin 11.9 g/dL (12.0-16.0) L Hematocrit 35.1 % (36-48) L Mean Corpuscular Volume 94.4 fL (79-99) Mean Corpuscular Hemoglobin 32.0 pg (27.0-33.0) Mean Corpuscular Hemoglobin Concent 33.9 g/dL (32.0-36.0) Red Cell Distribution Width 13.8 % (11.0-15.5) Platelet Count 380 K/uL (130-400) Mean Platelet Volume 9.7 fL (7.5-10.5) Immature Granulocyte % (Auto) 0.5 % (0-1) Neutrophils (%) (Auto) 74.8 % (40.0-77.0) Lymphocytes (%) (Auto) 15.3 % (21.0-51.0) L Monocytes (%) (Auto) 7.6 % (3.0-13.0) Eosinophils (%) (Auto) 1.4 % (0.0-8.0) Basophils (%) (Auto) 0.4 % (0.0-5.0) Neutrophils # (Auto) 10.6 K/uL (1.8-7.7) H Lymphocytes # (Auto) 2.2 K/uL (1.0-4.8) Monocytes # (Auto) 1.1 K/uL (0.1-1.0) H Eosinophils # (Auto) 0.20 K/uL (0.00-0.70) Basophils # (Auto) 0.06 K/uL (0.00-0.20) Absolute Immature Granulocyte (auto 0.07 K/uL (0-1) Nucleated Red Blood Cells 0.0 % (0.0-0.19) Sodium Level 138 mmol/L (136-145) Potassium Level 4.4 mmol/L (3.5-5.1) Chloride Level 103 mmol/L (101-111) Carbon Dioxide Level 26 mmol/L (21-32) Blood Urea Nitrogen 11 mg/dL (7-18) Creatinine 0.9 mg/dL (0.5-1.0) Glomerular Filtration Rate Calc 67 mL/min (>90) Random Glucose 89 mg/dL (70-105) Total Calcium 8.9 mg/dL (8.5-10.1) EKG/XRAY/US/CT/MRI Ultrasound Comment IMAGING REPORT Signed PATIENT: SHARMIN DIALLO MR#: [id number] : 1950 SEX: F AGE: 74 LOCATION: [facility] ORDER 55 STATUS: [facility] ER REPORT#: [id number] SERVICE 54 REASON: left breast wound ORDERING PHYSICIAN: CLEMENTE VENCES MD PROCEDURE: CHEST SCAN - US CHEST WALL SOFT TISSUE EXAM: US Chest Limited, Evaluate for Pleural Effusion. CLINICAL HISTORY: left breast wound TECHNIQUE: Real-time ultrasound of the chest to evaluate for pleural effusion. COMPARISON: None provided. FINDINGS: There is a 2.1 x 1.4 x 0.6 cm complex fluid collection in the left chest wall which may be due to abscess and/or hematoma. IMPRESSION: As above. /Surfside DICTATED BY: IVY CARROLL MD DATE: 12/19/241717 ELECTRONICALLY SIGNED BY: IVY CARROLL MD DATE: 12/19/241717 [facility] MDM: Differential diagnosis: Abscess, wound evaluation, diabetic mellitus, Rationale: Tests considered and ordered secondary to shared decision making include: labs, ECG and radiology Previous outside records reviewed: Old ER visits. Risk of complication and/or morbidity or mortality of patient management: None Medications-Per medication reconciliation Need for hospitalization: Patient does meet criteria for hospitalization. Need for emergency major/minor surgery: No There are no social concerns with this patient. Prescription drug management Prescriptions will include symptomatic care Patient's prior external medical records from other ER visits were reviewed by me as indicated. Prior testing and results from previous visits were reviewed. Prior tests were taken into account with medical decision making and resource utilization, independent historian/historians were used to obtain complete medical history. I independently interpreted the test that were performed, results were reviewed by me and considered findings on radiology if ordered. Medical management and examination interpretation discussions were had by me with other qualified healthcare professionals as indicated for the patient's care. Patient will be admitted under the care of hospitalist group for ongoing management. ED Course Orders Procedure Category Date Status Time Cbc With Differential LAB 12/19/24 Complete 14:55 Basic Metabolic Panel LAB 12/19/24 Complete 14:55 Us Chest Wall Soft US 12/19/24 Resulted Tissue 14:55 Lidocaine Hcl 1% 20ml PHA 12/19/24 Complete Vial (Lidocaine Hc 16:39 Ceftriaxone 1g Vial PHA 12/19/24 Logged (Rocephine 1g Inj) 18:30 Tetanus,Diphtheria PHA 12/19/24 Logged Tox [Adult] (Diphther 18:30 Aerobic Culture GABBI 12/19/24 Logged 18:16 Anaerobic Culture GABBI 12/19/24 Logged 18:16 Current Medications Medications (Trade) Dose Ordered Sig/Tito Route PRN Reason Start Time Stop Time Status Last Admin Dose Admin Ceftriaxone Sodium (ROCEphine 1G INJ) 1 gm ONCE ONCE IVPB 12/19/24 18:30 12/19/24 18:31 UNV Lidocaine HCl (Lidocaine HCl 1% 20ml Vial) 20 ml ONCE STAT INJ 12/19/24 16:39 12/19/24 16:43 DC 12/19/24 17:12 Tetanus/ Diphtheria Toxoids Adsorbed (DiphthERIA-teTANUS TOXOID [ADULT]/ DECAVAC) 0.5 ml ONCE ONCE IM 12/19/24 18:30 12/19/24 18:31 UNV Vital Signs Date Time Temp Pulse Resp B/P (MAP) Pulse Ox O2 Delivery O2 Flow Rate FiO2 12/19/24 16:00 98.1 82 16 142/74 98 Room Air* 0 21 12/19/24 14:38 97.9 85 16 144/76 97 Room Air Incision and Drainage Incision and Drainage : Blade Size: I & D Procedure: no betadine prepno sterile drapes applied Progress In a sterile environment a left lower breast wound was evaluated, open draining wound was anesthetized using lidocaine 1% 5 mL were used good anesthesia achieved, using a needle harrison probed into the wound extracted purulent discharge, wound was packed with iodoform packing 5 in. DX & DISP Disposition: Inpatient Decision to Admit Time: 18:21 Departure Impression: Primary Impression: Chest wall abscess Additional Impression: Diabetes mellitus with hyperglycemia Condition: Stable Referrals: SAMARA PRABHAKAR MD (PCP) CLEMENTE VENCES MD Dec 19, 2024 16:44
[2024-12-19] MEDS: LIDOCAINE HCL 1% 20 ML VIAL INJ STA (17:12)
--- NOTE | 2024-12-19 17:24 | NUR ---
FAILED ATTEMPT FOR IV INSERTION PT REQUESTED TO WAIT AND SEE IF IV ABX REQUIRED SHE WOUL PREFER PILLS TO BE GIVEN TO PROVIDE NEEDED COVERAGE IF MD REQUIRES MEDICATION ADMINISTRATION
--- NOTE | 2024-12-19 18:18 | NUR ---
TRANSFERED CARE TO [facility] AT THIS TIME
--- NOTE | 2024-12-19 18:21 | HP ---
History of Present Illness Reason for Visit: breast pain History of Present Illness Ms. Burk is a 74-year-old female that was seen and examined today on 12/19/2024. Patient is a good historian of personal health. Patient states he came to the emergency department with a chief complaint of breast pain. Onset was two weeks ago. Location is to left chest wall. Duration is constant. Character is described as red and swollen. There was no alleviating factors. Symptoms are aggravated with palpation. Patient denies any associated fever or chills. Today in the emergency department WBCs 14.1, chemistry unremarkable, no urinalysis has been collected or sent to lab, ultrasound of the chest shows chest wall abscess. Abscess was drained by emergency room physician and packed with iodoform. Emergency room physician recommended that patient be admitted with a diagnosis chest wall abscess. Past Medical History Patient History: Patient reports no known family medical history. ADDITIONAL PAST MEDICAL HISTORY: [Arthritis, hyperlipidemia, hypertension, breast CA, Diabetes mellitius type2] SOCIAL HISTORY: [Negative for smoking, alcohol use, drug use. Patient lives with the has been,kelli granger. Patient is typically independent of her ADLs. Patient denies difficulty paying her bills.] SURGICAL HISTORY: [Right mastectomy, hysterectomy, cholecystectomy, BTL] Review of Systems General: No Fever, No Chills, No Night Sweats, No Fatigue, No Malaise, No Appetite, No Other HEENT: No Head Aches, No Visual Changes, No Eye Pain, No Ear Pain, No Dysphasia, No Sinus Congestion, No Post Nasal Drip, No Sore Throat, No Other Pulmonary: No Dyspnea, No Cough, No Pleuritic Chest Pain, No Other Cardiovascular: No: Chest Pain, Palpitations, Orthopnea, Paroxysmal Noc. Dyspnea, Edema, Lt Headedness, Other Gastrointestinal: No: Nausea, Vomiting, Abdominal Pain, Diarrhea, Constipation, Melena, Hematochezia, Other Genitourinary: No Dysuria, No Frequency, No Incontinence, No Hematuria, No Retention, No Other Musculoskeletal: No: other, neck pain, shoulder pain, arm pain, back pain, hand pain, leg pain, foot pain Skin: No Urticaria; Rash; No Other Neurological: No: Weakness, Numbness, Incoordination, Change in speech, Confusion, Seizures, Other Allergies: Coded Allergies: No Known Drug Allergies (Unverified Allergy, Unknown, 11/06/19) Scheduled Amoxicillin/Potassium Clav (Amox Tr-K Clv 875-125 mg Tab), 1 TAB PO BID, (Reported) Cholecalciferol (Vitamin D3), 1 CAP PO QWEEK, (Reported) Meclizine HCl (Medi-Meclizine), 1 TAB PO BID, (Reported) Metformin HCl (Metformin HCl), 1 TAB PO BID, (Reported) Metoprolol Succinate (Metoprolol Succinate), 1 TAB PO DAILY, (Reported) Olmesartan/Hydrochlorothiazide (Olmesartan-Hctz 40-12.5 mg Tab), 1 TAB PO DAILY, (Reported) Olmesartan/Hydrochlorothiazide (Olmesartan-Hctz 40-12.5 mg Tab), 1 TAB PO DAILY, (Reported) Omeprazole (Omeprazole), 1 CAP PO ACBKFST, (Reported) Rosuvastatin Calcium (Rosuvastatin Calcium), 1 TAB PO HS, (Reported) Discontinued Medications Albuterol Sulfate (Proair Digihaler), 2 PUFF IH QID Diclofenac Sodium (Voltaren Arthritis Pain), 1 APPL TP BID Fosfomycin Tromethamine (Fosfomycin Tromethamine), 3 GM PO ONCE Ibuprofen (Motrin/Advil), 800 MG PO TID Nitrofurantoin Macrocrystal (Nitrofurantoin), 1 CAP PO BID Nitrofurantoin Macrocrystal (Nitrofurantoin), 1 CAP PO BID Ondansetron (Ondansetron Odt), 4 MG PO Q6HPRN PRN for nausea Tramadol Hcl (Tramadol HCl), 50 MG PO TID Exam Vital Signs Vital Signs Date Time Temp Pulse Resp B/P (MAP) Pulse Ox O2 Delivery O2 Flow Rate FiO2 12/19/24 16:00 98.1 82 16 142/74 98 Room Air* 0 21 General Appearance: Alert, Oriented X3, Cooperative, No acute distress HEENT: Mucous membr. moist/pink Respiratory: Clear to auscultation, Normal air movement, NL respiratory effort Cardiovascular: Normal S1, Normal S2 Abdominal: Normal bowel sounds, Soft, No tenderness Extremities: No edema Skin: No significant lesion Neuro: Normal speech, Strength at 5/5 X4 ext, Sensation intact, Cranial nerves 3-12 NL Psych/Mental Status: Mental status NL, Mood NL, Thoughts/Content NL Assessment/Plan ASSESSMENT: [ Chest wall abscess, POA Leukocytosis, POA arthritis Hyperlipidemia Hypertension Breast CA] PLAN: [ Admit patient to medical floor as inpatient status. Chest wall abscess, leukocytosis: Abscess has been drained by emergency room physician and packed. Consult General surgery Service for evaluations and recommendations. Empiric antibiotic therapy with Zosyn Check procalcitonin, follow up with the results Check lactic acid, follow up with the results Check wound culture, follow up with the results Arthritis, hypertension, hyperlipidemia: Consider resuming home medications once they have been reconciled. At time of admission home medications has been reconciled. For now: As needed analgesia with morphine Hydralazine 10 mg IV every 4 hours for systolic blood pressure greater than 160 mmHg GI prophylaxis, famotidine DVT prophylaxis, Lovenox ADVANCED CARE PLANNING 1. Which of the following were discussed? Hospice Care - Yes Therapeutic options - yes Advance Directives - Yes - patient states he does not have any advance directives in place at this time, however her has been can make decisions for her if she becomes unable Other discussions - patient wishes to remain a full code 2. Discussed with who? Patient 3. Voluntary nature of this service was explained to the patient? Yes 4. Amount of time spent - ___16 minutes____ 5. Reviewed by Physician? (if this service was performed by NPP) Yes This document was generated in part using voice recognition software, occasional wrong word or sound alike substitutions may have occurred due to the inherent limitations of voice recognition software. Read the chart carefully and recognize using context, where the substitutions have occurred. Although every effort was made to edit the content, commissioned security officer and typing errors may occur ATTESTATION BY PHYSICIAN I have seen and examined the patient. I reviewed the documentation, medical decision making, and treatment plan as noted by the mid-level provider above. I agree with the findings and plan of care. ] CJ NEFF [facility] Dec 19, 2024 18:21
[2024-12-19] MEDS: ZOSYN 3.375GM +NS 50ML IV SCH (18:44)
[2024-12-19] MEDS ORDERED: AMOX1TAB16 PO (19:22)
[2024-12-19] MEDS ORDERED: OLME-30 PO ×2 (19:22)
[2024-12-19] MEDS ORDERED: METO-391 PO (19:22)
[2024-12-19] MEDS ORDERED: ROSU40TA88 PO (19:22)
[2024-12-19] MEDS ORDERED: METF-444 PO (19:22)
[2024-12-19] MEDS ORDERED: VITAD50000 PO (19:22)
[2024-12-19] MEDS ORDERED: MECL25TA39 PO (19:22)
[2024-12-19] MEDS ORDERED: OMEP20CA12 PO (19:22)
[2024-12-19 20:00] VITALS: BP 128/56; PULSE 49; RESP 19; TEMP 97.8
[2024-12-20] VITALS (9 sets, daily range): BP systolic 108–167; BP diastolic 58–89; PULSE 68–93; RESP 15–18; TEMP 97.7–98.2; O2SAT 95–98
[2024-12-20] MEDS: MAG/ALUM/SIMETH 30 ML UDCUP PO ONE (03:55)
[2024-12-20 07:32] LABS: IMMATURE GRANULOCYTE ABSOLUTE 0.06 K/uL (0-1); NUCLEATED RED BLOOD CELLS 0.0 % (0.0-0.19); PLATELET COUNT (AUTO) 324 K/uL (130-400); RED BLOOD CELL COUNT(AUTO) 3.36 MIL/uL (4.00-5.50); RED CELL DISTRIBUTION WIDTH 13.8 % (11.0-15.5); WHITE BLOOD COUNT (AUTO) 13.4 K/uL (4.8-10.8)
[2024-12-20 07:51] LABS: CREATININE 1.0 mg/dL (0.5-1.0); GLOMERULAR FILTR. RATE CALC 59.0 mL/min (>90); GLUCOSE,RANDOM 112.0 mg/dL (70-105); PHOSPHORUS 3.5 mg/dL (2.5-4.9); SODIUM SERUM 139.0 mmol/L (136-145); UREA NITROGEN, BLOOD 10.0 mg/dL (7-18)
[2024-12-20] MEDS: OLMESARTAN PO SCH (09:00)
[2024-12-20] MEDS: HYDROCHLOROTHIAZIDE PO SCH (09:00)
[2024-12-20] MEDS: Cholecalciferol (Vitamin D3) 1 CAP PO SCH (09:00)
[2024-12-20] MEDS: FAMOTIDINE 20MG TAB PO SCH (10:45)
[2024-12-20] MEDS: ENOXAPARIN SODIUM 40 MG/0.4 ML SYRINGE SQ SCH (10:45)
--- NOTE | 2024-12-20 11:35 | NUR ---
DCP:HOME Pt currently lives with dmitry Vicente in their home. pt does not report insecurities with food, chcf, and/or utilities. Pt does use a cane at home. Pt has a provider that works with her 21 hrs a week and assist with home management and meals. PCP is Dr. Dewayne Rodrigues and uses [facility] for any RX needs. At [place] pt will want to go home and family can assist with transportation. Addendum: 12/20/24 at 1137 by AURA GARCIA SS Amended: Links added.
--- NOTE | 2024-12-20 12:56 | PN ---
[facility] PROGRESS NOTE Date of Service: Dec 20, 2024 Time of Service: 12:[address] Silvestre SUBJECTIVE: [ 12/19/2024 Ms. Burk is a 74-year-old female that was seen and examined today on 12/19/2024. Patient is a good historian of personal health. Patient states he came to the emergency department with a chief complaint of breast pain. Onset was two weeks ago. Location is to left chest wall. Duration is constant. Character is described as red and swollen. There was no alleviating factors. Symptoms are aggravated with palpation. Patient denies any associated fever or chills. Today in the emergency department WBCs 14.1, chemistry unremarkable, no urinalysis has been collected or sent to lab, ultrasound of the chest shows chest wall abscess. Abscess was drained by emergency room physician and packed with iodoform. Emergency room physician recommended that patient be admitted with a diagnosis chest wall abscess. 12/20/2024 patient was seen by nurse practitioner and physician rounding in emergency department room ED 16. Patient left under breast wound was evaluated by nurse practitioner and at this moment we will continue antibiotics as prescribed. We are still pending surgeon consultation regarding possible I and D. Chest ultrasound showed 2.1 x 1.4 x 0.6 complex fluid collection left chest wall, abscess or hematoma. Patient is complaining of pain with the wound/abscess is. We will continue to monitor patient in the meantime. A.m. labs.] REVIEW OF SYSTEMS CONSTITUTIONAL: Denies fevers, chills, or night sweats. No unintentional weight loss reported. NEUROLOGICAL: Denies headache, amaurosis fugax, motor weakness, sensory deficit, vertigo/spinning sensation, gait abnormalities, or tremors. ENT: No hearing loss, otalgia, otorrhea, rhinitis, rhinorrhea, hoarseness, or sore throat. CARDIOVASCULAR: Denies any exertional angina, dyspnea on exertion, orthopnea, paroxysmal nocturnal dyspnea, palpitations, life-threatening arrhythmias, claudication. PULMONARY: Denies any shortness of breath, cough, phlegm/sputum, hemoptysis, pleuritic chest pain. SLEEP: Denies morning headaches, daytime somnolence or napping. Denies difficulty falling asleep, staying asleep, waking from sleep. Denies knowledge of snoring. GASTROINTESTINAL: Denies any type of dysphagia to either liquids or solids. Denies nausea, vomiting, pyrosis, early satiety, abdominal pain, diarrhea, constipation, or changes in stool consistency or caliber. Denies coffee-ground emesis, hematemesis, hematochezia, or melanotic stools. GENITOURINARY: Denies frequency, urgency, nocturia, hematuria or incontinence (Storage/Irritative symptoms.) Low urinary stream, straining to void, urinary intermittency or hesitancy, splitting of the voiding stream, terminal dribbling. ENDOCRINOLOGIC: Denies polyuria, polydipsia, polyphagia or heat/cold intolerances. HEMATOLOGIC: Denies thrombophilia/previous clots, or coagulopathy/bleeding disorders. ONCOLOGIC: Denies personal history of malignancy. DERMATOLOGIC: Denies rashes or pruritus. PSYCHIATRIC: Denies any suicidal or homicidal ideation. Denies hallucinations. PHYSICAL EXAM GENERAL APPEARANCE: The patient is awake, alert, and oriented, in no acute cardiopulmonary distress. NEUROLOGICAL: Cranial nerves II-XII grossly intact. Motor is 5/5 in bilateral upper and lower extremities proximal to distal. No sensory deficits. HEENT: Face is symmetric. Pupils are equal and reactive. Extraocular movements are intact. NECK: Supple. No JVD. No thyromegaly. No submental, submandibular, pre- /postauricular, occipital or supraclavicular lymphadenopathy. CHEST: Normal chest expansion. No Telemetry. LUNGS: Absence of any rales, rhonchi or any wheezing. CARDIOVASCULAR: Regular. S1 and S2 normal. No appreciable rubs, murmurs or gallops. ABDOMEN: Soft, nontender, and nondistended. There is no rebound, voluntary guarding, or rigidity. : Deferred. No Ortiz. EXTREMITIES: Non-edematous and not cyanotic. No clubbing. Good capillary refill. SKIN: Left under breast wound/abscess LABS: Laboratory: Test 12/20/24 07:25 12/19/24 22:10 Range/Units White Blood Count 13.4 H 4.8-10.8 K/uL Red Blood Count 3.36 L 4.00-5.50 MIL/uL Hemoglobin 10.7 L 12.0-16.0 g/dL Hematocrit 32.2 L 36-48 % Mean Corpuscular Volume 95.8 79-99 fL Mean Corpuscular Hemoglobin 31.8 27.0-33.0 pg Mean Corpuscular Hemoglobin Concent 33.2 32.0-36.0 g/dL Red Cell Distribution Width 13.8 11.0-15.5 % Platelet Count 324 130-400 K/uL Mean Platelet Volume 9.7 7.5-10.5 fL Immature Granulocyte % (Auto) 0.4 0-1 % Neutrophils (%) (Auto) 72.1 40.0-77.0 % Lymphocytes (%) (Auto) 16.9 L 21.0-51.0 % Monocytes (%) (Auto) 8.1 3.0-13.0 % Eosinophils (%) (Auto) 2.1 0.0-8.0 % Basophils (%) (Auto) 0.4 0.0-5.0 % Neutrophils # (Auto) 9.7 H 1.8-7.7 K/uL Lymphocytes # (Auto) 2.3 1.0-4.8 K/uL Monocytes # (Auto) 1.1 H 0.1-1.0 K/uL Eosinophils # (Auto) 0.28 0.00-0.70 K/uL Basophils # (Auto) 0.05 0.00-0.20 K/uL Absolute Immature Granulocyte (auto 0.06 0-1 K/uL Nucleated Red Blood Cells 0.0 0.0-0.19 % Sodium Level 139 136-145 mmol/L Potassium Level 4.4 3.5-5.1 mmol/L Chloride Level 103 101-111 mmol/L Carbon Dioxide Level 29 21-32 mmol/L Blood Urea Nitrogen 10 7-18 mg/dL Creatinine 1.0 0.5-1.0 mg/dL Glomerular Filtration Rate Calc 59 >90 mL/min Random Glucose 112 H 70-105 mg/dL Total Calcium 8.9 8.5-10.1 mg/dL Phosphorus Level 3.5 2.5-4.9 mg/dL Magnesium Level 1.60 L 1.80-2.40 mg/dL Lactic Acid Level 2.0 0.8-2.5 mmol/L Procalcitonin < 0.05 L 0.05-0.5 ng/mL Current Medications Medications (Trade) Dose Ordered Sig/Tito Route PRN Reason Start Time Stop Time Status Last Admin Dose Admin Acetaminophen (TYLenol 325MG TAB) 650 mg Q6H PRN PO TEMPERATURE GREATER THAN 101.5 12/19/24 18:30 01/18/25 18:29 Atorvastatin Calcium (LIPItor 40MG) 80 mg HS PO 12/20/24 21:00 01/19/25 20:59 Enoxaparin Sodium (Lovenox) 40 mg DAILY SQ 12/20/24 09:00 01/19/25 08:59 12/20/24 10:45 40 MG Famotidine (Pepcid 20mg Tab) 20 mg DAILY PO 12/20/24 09:00 01/19/25 08:59 12/20/24 10:45 20 MG Home Med (Home Medication) DAILY PO 12/20/24 09:00 01/19/25 08:59 Home Med (Home Medication) QWEEK PO 12/20/24 09:00 01/19/25 08:59 Hydralazine HCl (APRESOLine 20MG INJ) 10 mg Q6H PRN IV For:SBP above 160;DBP above 90 12/19/24 18:30 01/18/25 18:29 Lidocaine HCl (Lidocaine HCl 1% 20ml Vial) 20 ml ONCE STAT INJ 12/19/24 16:39 12/19/24 16:43 DC 12/19/24 17:12 20 ML Meclizine HCl (ANTIvert 25 mg) 25 mg BID PO 12/20/24 09:00 01/19/25 08:59 12/20/24 10:45 25 MG Metoprolol Succinate (TopROL XL) 50 mg DAILY PO 12/20/24 09:00 01/19/25 08:59 12/20/24 10:45 50 MG Morphine Sulfate (morPHINE 2MG SYG) 2 mg Q4H PRN IVP SEVERE PAIN (7-10) 12/19/24 18:30 12/26/24 18:29 12/19/24 22:22 2 MG Ondansetron HCl (zoFRAN 4MG INJ) 4 mg Q6H PRN IV NAUSEA/VOMITING 12/19/24 18:30 01/18/25 18:29 Pantoprazole Sodium (PROTonix 40MG TAB) 40 mg ACBKFST PO 12/20/24 07:30 01/19/25 07:29 12/20/24 10:45 40 MG Piperacillin Sod/ Tazobactam Sod (Zosyn 3.375gm+NS 50ml) 3.375 gm Q8H IV 12/19/24 18:30 12/29/24 18:29 12/20/24 10:44 3.375 GM DIAGNOSTICS / RADIOLOGY: [ ] ASSESSMENT: [ ASSESSMENT: [ Chest wall abscess, under left breast POA Leukocytosis, POA arthritis Hyperlipidemia Uncontrolled Hypertension Breast CA] PLAN: [ Continue patient in the medical-surgical floor Chest wall abscess, leukocytosis: Abscess has been drained by emergency room physician and packed. Consult General surgery Service for evaluations and recommendations. Empiric antibiotic therapy with Zosyn Pending wound culture Arthritis, hypertension, hyperlipidemia: Home medication reconciled by nurse practitioner 12/20/2024 As needed analgesia with morphine Hydralazine 10 mg IV every 4 hours for systolic blood pressure greater than 160 mmHg GI prophylaxis, famotidine DVT prophylaxis, Lovenox A.m. labs] ATTESTATION BY PHYSICIAN I have seen and examined the patient. I reviewed the documentation, medical decision making, and treatment plan as noted by the mid-level provider above. I agree with the findings and plan of care. CHRISTINE SILVESTRE MD, KATARZYNA B RESEARCH MANUFACTURING OPERATOR Dec 20, 2024 12:56
--- NOTE | 2024-12-20 16:38 | PN ---
Consulting physician: Dr. Tamayo Consulting service: General surgery Reason for consultation: Left chest wall abscess History of present illness: This is a 74-year-old female with a medical history listed below. Patient reports that two weeks ago she began with what she described as abscess and due to concerns of worsening discomfort patient presented for further evaluation. In ED abscess drained and packed with the iodoform. Patient is seen in room resting comfortably. Patient's pain controlled. No significant induration at this time. Patient currently on IV fluids and IV antibiotics. Medical history: ADDITIONAL PAST MEDICAL HISTORY: Arthritis, hyperlipidemia, hypertension, breast CA, Diabetes mellitius type2 SOCIAL HISTORY: Negative for smoking, alcohol use, drug use. Patient lives with the has been,kelli granger. Patient is typically independent of her ADLs. Patient denies difficulty paying her bills. SURGICAL HISTORY: Right mastectomy, hysterectomy, cholecystectomy, BTL Review of systems: General: No Fever, No Chills, No Night Sweats, No Fatigue, No Malaise, No Appetite, No Other HEENT: No Head Aches, No Visual Changes, No Eye Pain, No Ear Pain, No Dysphasia, No Sinus Congestion, No Post Nasal Drip, No Sore Throat, No Other Pulmonary: No Dyspnea, No Cough, No Pleuritic Chest Pain, No Other Cardiovascular: No: Chest Pain, Palpitations, Orthopnea, Paroxysmal No Dyspnea, Edema, Lt Headedness, Other Gastrointestinal: No: Nausea, Vomiting, Diarrhea, Constipation, Melena, Hematochezia, Other Genitourinary: No Dysuria, No Frequency, No Incontinence, No Hematuria, No Retention, No Other Musculoskeletal: No: other, neck pain, shoulder pain, arm pain, back pain, hand pain, leg pain, foot pain Skin: No Urticaria, No Rash, No Other Neurological: No: Weakness, Numbness, Incoordination, Change in speech, Confusion, Seizures, Other Physical exam: General: Awake alert and oriented Heart: Regular rate and rhythm} Lungs: Clear to auscultation no distress Abdomen: [Soft, nontender, nondistended Left breast I and D site with iodoform packed in less induration noted Assessment: This is a 74-year-old female with left chest wall abscess with recent I and D by ER Plan: Continue with wound care to I and D site Start with warm compresses Continue with the IV fluids and IV antibiotics Surgical team to follow patient closely Wound to be re-evaluated tomorrow Vitals/Labs Vital Signs Date Time Temp Pulse Resp B/P (MAP) Pulse Ox O2 Delivery O2 Flow Rate FiO2 12/20/24 04:00 97.7 68 15 128/70 98 Room Air 12/19/24 16:00 0 21 Laboratory Tests 12/20/24 07:25 Medications Current Medications Lidocaine HCl 20 ml ONCE STAT INJ Last administered on 12/19/24at 17:12; Start 12/19/24 at 16:39; Stop 12/19/24 at 16:43; Status DC Ceftriaxone Sodium 1 gm ONCE ONCE IVPB; Start 12/19/24 at 18:30; Stop 12/19/24 at 18:25; Status DC Tetanus/ Diphtheria Toxoids Adsorbed 0.5 ml ONCE ONCE IM Last administered on 12/19/24at 18:46; Start 12/19/24 at 18:30; Stop 12/19/24 at 18:31; Status DC Acetaminophen 650 mg Q6H PRN PO; Start 12/19/24 at 18:30; Stop 01/18/25 at 18:29 Enoxaparin Sodium 40 mg DAILY SQ Last administered on 12/20/24at 10:45; Start 12/20/24 at 09:00; Stop 01/19/25 at 08:59 Famotidine 20 mg DAILY PO Last administered on 12/20/24at 10:45; Start 12/20/24 at 09:00; Stop 01/19/25 at 08:59 Hydralazine HCl 10 mg Q6H PRN IV; Start 12/19/24 at 18:30; Stop 01/18/25 at 18:29 Morphine Sulfate 2 mg Q4H PRN IVP Last administered on 12/19/24at 22:22; Start 12/19/24 at 18:30; Stop 12/26/24 at 18:29 Ondansetron HCl 4 mg Q6H PRN IV; Start 12/19/24 at 18:30; Stop 01/18/25 at 18:29 Piperacillin Sod/ Tazobactam Sod 3.375 gm Q8H IV Last administered on 12/20/24at 10:44; Start 12/19/24 at 18:30; Stop 12/29/24 at 18:29 Al Hydroxide/Mg Hydroxide 30 ml ONCE ONCE PO Last administered on 12/20/24at 03:55; Start 12/20/24 at 04:00; Stop 12/20/24 at 04:02; Status DC Meclizine HCl 25 mg BID PO Last administered on 12/20/24at 10:45; Start 12/20/24 at 09:00; Stop 01/19/25 at 08:59 Metoprolol Succinate 50 mg DAILY PO Last administered on 12/20/24at 10:45; Start 12/20/24 at 09:00; Stop 01/19/25 at 08:59 Home Med QWEEK PO; Start 12/20/24 at 09:00; Stop 01/19/25 at 08:59 Home Med DAILY PO; Start 12/20/24 at 09:00; Stop 01/19/25 at 08:59 Pantoprazole Sodium 40 mg ACBKFST PO Last administered on 12/20/24at 10:45; Start 12/20/24 at 07:30; Stop 01/19/25 at 07:29 Atorvastatin Calcium 80 mg HS PO; Start 12/20/24 at 21:00; Stop 01/19/25 at 20:59 ENRISSA REZA Jr. Dec 20, 2024 16:37
[2024-12-21] VITALS (8 sets, daily range): BP systolic 102–136; BP diastolic 59–82; PULSE 55–90; RESP 16–20; TEMP 97.7–98.7; O2SAT 94–100
[2024-12-21 05:40] LABS: IMMATURE GRANULOCYTE ABSOLUTE 0.04 K/uL (0-1); NUCLEATED RED BLOOD CELLS 0.0 % (0.0-0.19); PLATELET COUNT (AUTO) 347 K/uL (130-400); RED BLOOD CELL COUNT(AUTO) 3.41 MIL/uL (4.00-5.50); RED CELL DISTRIBUTION WIDTH 13.7 % (11.0-15.5); WHITE BLOOD COUNT (AUTO) 9.5 K/uL (4.8-10.8)
[2024-12-21 06:09] LABS: ASPARTATE AMINOTRANSFERASE 17.0 U/L (10-37); CREATININE 1.1 mg/dL (0.5-1.0); GLOMERULAR FILTR. RATE CALC 53.0 mL/min (>90); GLUCOSE,RANDOM 124.0 mg/dL (70-105); SODIUM SERUM 140.0 mmol/L (136-145); TOTAL PROTEIN, SERUM 6.5 g/dL (6.0-8.3); UREA NITROGEN, BLOOD 8.0 mg/dL (7-18)
--- NOTE | 2024-12-21 08:16 | NUR ---
A.M. DOSE OF METOPROLOL HELD IN ORDER TO PREVENT HYPOTENSION. CURRENT BLOOD PRESSURE 109/64
--- NOTE | 2024-12-21 10:11 | PN ---
[facility] PROGRESS NOTE Date of Service: Dec 21, 2024 Time of Service: 10:[address] Silvestre SUBJECTIVE: [ 12/19/2024 Ms. Burk is a 74-year-old female that was seen and examined today on 12/19/2024. Patient is a good historian of personal health. Patient states he came to the emergency department with a chief complaint of breast pain. Onset was two weeks ago. Location is to left chest wall. Duration is constant. Character is described as red and swollen. There was no alleviating factors. Symptoms are aggravated with palpation. Patient denies any associated fever or chills. Today in the emergency department WBCs 14.1, chemistry unremarkable, no urinalysis has been collected or sent to lab, ultrasound of the chest shows chest wall abscess. Abscess was drained by emergency room physician and packed with iodoform. Emergency room physician recommended that patient be admitted with a diagnosis chest wall abscess. 12/20/2024 patient was seen by nurse practitioner and physician rounding in emergency department room ED 16. Patient left under breast wound was evaluated by nurse practitioner and at this moment we will continue antibiotics as prescribed. We are still pending surgeon consultation regarding possible I and D. Chest ultrasound showed 2.1 x 1.4 x 0.6 complex fluid collection left chest wall, abscess or hematoma. Patient is complaining of pain with the wound/abscess is. We will continue to monitor patient in the meantime. A.m. labs. 12/21/24 patient was seen by nurse practitioner and physician during rounding in room 310. Patient is s/p I and D in ER. Patient was evaluated by the surgeon and at this moment he recommends to continue antibiotics and we will re- evaluated the wound today in a.m.. Wound and blood culture pending. Continue Zosyn and Rocephin antibiotics for now. WBC trending down 9.5. We will continue to monitor patient in the meantime. A.m. labs] REVIEW OF SYSTEMS CONSTITUTIONAL: Denies fevers, chills, or night sweats. No unintentional weight loss reported. NEUROLOGICAL: Denies headache, amaurosis fugax, motor weakness, sensory deficit, vertigo/spinning sensation, gait abnormalities, or tremors. ENT: No hearing loss, otalgia, otorrhea, rhinitis, rhinorrhea, hoarseness, or sore throat. CARDIOVASCULAR: Denies any exertional angina, dyspnea on exertion, orthopnea, paroxysmal nocturnal dyspnea, palpitations, life-threatening arrhythmias, cl audication. PULMONARY: Denies any shortness of breath, cough, phlegm/sputum, hemoptysis, pleuritic chest pain. SLEEP: Denies morning headaches, daytime somnolence or napping. Denies difficulty falling asleep, staying asleep, waking from sleep. Denies knowledge of snoring. GASTROINTESTINAL: Denies any type of dysphagia to either liquids or solids. Denies nausea, vomiting, pyrosis, early satiety, abdominal pain, diarrhea, const ipation, or changes in stool consistency or caliber. Denies coffee-ground emesis, hematemesis, hematochezia, or melanotic stools. GENITOURINARY: Denies frequency, urgency, nocturia, hematuria or incontinence (Storage/Irritative symptoms.) Low urinary stream, straining to void, urinary intermittency or hesitancy, splitting of the voiding stream, terminal dribbling. ENDOCRINOLOGIC: Denies polyuria, polydipsia, polyphagia or heat/cold intolerances. HEMATOLOGIC: Denies thrombophilia/previous clots, or coagulopathy/bleeding disorders. ONCOLOGIC: Denies personal history of malignancy. DERMATOLOGIC: Denies rashes or pruritus. Left chest abscess PSYCHIATRIC: Denies any suicidal or homicidal ideation. Denies hallucinations. PHYSICAL EXAM GENERAL APPEARANCE: The patient is awake, alert, and oriented, in no acute cardiopulmonary distress. NEUROLOGICAL: Cranial nerves II-XII grossly intact. Motor is 5/5 in bilateral upper and lower extremities proximal to distal. No sensory deficits. HEENT: Face is symmetric. Pupils are equal and reactive. Extraocular movements are intact. NECK: Supple. No JVD. No thyromegaly. No submental, submandibular, pre- /postauricular, occipital or supraclavicular lymphadenopathy. CHEST: Normal chest expansion. No Telemetry. LUNGS: Absence of any rales, rhonchi or any wheezing. CARDIOVASCULAR: Regular. S1 and S2 normal. No appreciable rubs, murmurs or gallops. ABDOMEN: Soft, nontender, and nondistended. There is no rebound, voluntary guarding, or rigidity. : Deferred. No Ortiz. EXTREMITIES: Non-edematous and not cyanotic. No clubbing. Good capillary refill. SKIN: Left under breast wound/abscess Vital Signs (last 8hr) Date Time Temp Pulse Resp B/P (MAP) Pulse Ox O2 Delivery O2 Flow Rate FiO2 12/21/24 08:13 98 Room Air* 0 21 12/21/24 08:00 98.8 58 17 109/64 98 Room Air 12/21/24 04:39 97.7 55 18 131/75 97 Room Air LABS: Laboratory: Test 12/21/24 05:45 12/21/24 05:15 12/20/24 07:25 12/19/24 22:10 Range/Units Whole Blood Glucose 116 H 70-110 MG/DL White Blood Count 9.5 # 4.8-10.8 K/uL Red Blood Count 3.41 L 4.00-5.50 MIL/uL Hemoglobin 10.9 L 12.0-16.0 g/dL Hematocrit 31.6 L 36-48 % Mean Corpuscular Volume 92.7 79-99 fL Mean Corpuscular Hemoglobin 32.0 27.0-33.0 pg Mean Corpuscular Hemoglobin Concent 34.5 32.0-36.0 g/dL Red Cell Distribution Width 13.7 11.0-15.5 % Platelet Count 347 130-400 K/uL Mean Platelet Volume 10.1 7.5-10.5 fL Immature Granulocyte % (Auto) 0.4 0-1 % Neutrophils (%) (Auto) 66.4 40.0-77.0 % Lymphocytes (%) (Auto) 20.6 L 21.0-51.0 % Monocytes (%) (Auto) 10.3 3.0-13.0 % Eosinophils (%) (Auto) 1.9 0.0-8.0 % Basophils (%) (Auto) 0.4 0.0-5.0 % Neutrophils # (Auto) 6.3 1.8-7.7 K/uL Lymphocytes # (Auto) 2.0 1.0-4.8 K/uL Monocytes # (Auto) 1.0 0.1-1.0 K/uL Eosinophils # (Auto) 0.18 0.00-0.70 K/uL Basophils # (Auto) 0.04 0.00-0.20 K/uL Absolute Immature Granulocyte (auto 0.04 0-1 K/uL Nucleated Red Blood Cells 0.0 0.0-0.19 % Sodium Level 140 136-145 mmol/L Potassium Level 4.8 3.5-5.1 mmol/L Chloride Level 106 101-111 mmol/L Carbon Dioxide Level 26 21-32 mmol/L Blood Urea Nitrogen 8 7-18 mg/dL Creatinine 1.1 H 0.5-1.0 mg/dL Glomerular Filtration Rate Calc 53 >90 mL/min Random Glucose 124 H 70-105 mg/dL Total Calcium 8.9 8.5-10.1 mg/dL Magnesium Level 2.10 1.80-2.40 mg/dL Total Bilirubin 0.5 0.2-1.0 mg/dL Aspartate Amino Transf (AST/SGOT) 17 10-37 U/L Alanine Aminotransferase (ALT/SGPT) 24 12-78 U/L Alkaline Phosphatase 69 50-136 U/L Total Protein 6.5 6.0-8.3 g/dL Albumin 3.1 L 3.5-5.0 g/dL Phosphorus Level 3.5 2.5-4.9 mg/dL Lactic Acid Level 2.0 0.8-2.5 mmol/L Procalcitonin < 0.05 L 0.05-0.5 ng/mL Current Medications Medications (Trade) Dose Ordered Sig/Tito Route PRN Reason Start Time Stop Time Status Last Admin Dose Admin Acetaminophen (TYLenol 325MG TAB) 650 mg Q6H PRN PO TEMPERATURE GREATER THAN 101.5 12/19/24 18:30 01/18/25 18:29 Atorvastatin Calcium (LIPItor 40MG) 80 mg HS PO 12/20/24 21:00 01/19/25 20:59 12/20/24 21:14 80 MG Enoxaparin Sodium (Lovenox) 40 mg DAILY SQ 12/20/24 09:00 01/19/25 08:59 12/21/24 08:13 40 MG Famotidine (Pepcid 20mg Tab) 20 mg DAILY PO 12/20/24 09:00 01/19/25 08:59 12/21/24 08:13 20 MG Home Med (Home Medication) DAILY PO 12/20/24 09:00 01/19/25 08:59 Home Med (Home Medication) QWEEK PO 12/20/24 09:00 01/19/25 08:59 Hydralazine HCl (APRESOLine 20MG INJ) 10 mg Q6H PRN IV For:SBP above 160;DBP above 90 12/19/24 18:30 01/18/25 18:29 Lidocaine HCl (Lidocaine HCl 1% 20ml Vial) 20 ml ONCE STAT INJ 12/19/24 16:39 12/19/24 16:43 DC 12/19/24 17:12 20 ML Meclizine HCl (ANTIvert 25 mg) 25 mg BID PO 12/20/24 09:00 01/19/25 08:59 12/21/24 08:13 25 MG Metoprolol Succinate (TopROL XL) 50 mg DAILY PO 12/20/24 09:00 01/19/25 08:59 12/20/24 10:45 50 MG Morphine Sulfate (morPHINE 2MG SYG) 2 mg Q4H PRN IVP SEVERE PAIN (7-10) 12/19/24 18:30 12/26/24 18:29 12/19/24 22:22 2 MG Ondansetron HCl (zoFRAN 4MG INJ) 4 mg Q6H PRN IV NAUSEA/VOMITING 12/19/24 18:30 01/18/25 18:29 12/20/24 21:14 4 MG Pantoprazole Sodium (PROTonix 40MG TAB) 40 mg ACBKFST PO 12/20/24 07:30 01/19/25 07:29 12/21/24 08:13 40 MG Piperacillin Sod/ Tazobactam Sod (Zosyn 3.375gm+NS 50ml) 3.375 gm Q8H IV 12/19/24 18:30 12/29/24 18:29 12/21/24 03:09 3.375 GM DIAGNOSTICS / RADIOLOGY: [ ] ASSESSMENT: [ Chest wall abscess, under left breast POA Leukocytosis, POA arthritis Hyperlipidemia Uncontrolled Hypertension Breast CA TOYA POA Acute dehydration POA ] PLAN: [ Continue patient in the medical-surgical floor Chest wall abscess, leukocytosis: Abscess has been drained by emergency room physician and packed. General surgery Service for evaluations. Pending further recommendations Empiric antibiotic therapy with Zosyn Pending wound culture Pending blood culture Arthritis, hypertension, hyperlipidemia: Home medication reconciled by nurse practitioner 12/20/2024 As needed analgesia with morphine Hydralazine 10 mg IV every 4 hours for systolic blood pressure greater than 160 mmHg GI prophylaxis, famotidine DVT prophylaxis, Lovenox A.m. labs] ATTESTATION BY PHYSICIAN I have seen and examined the patient. I reviewed the documentation, medical decision making, and treatment plan as noted by the mid-level provider above. I agree with the findings and plan of care. CHRISTINE SILVESTRE MD, [employer] Dec 21, 2024 10:11
--- NOTE | 2024-12-21 11:12 | PN ---
This is a 74-year-old female status post I and D to left breast region Interval history: This 74-year-old female seen in her room resting Cultures pending Nursing performing wound care packing with iodoform Patient has been using warm compresses throughout the evening Physical exam General: Awake alert and oriented Heart: Regular rate and rhythm} Lungs: Clear to auscultation no distress Abdomen: [Soft, nontender, nondistended Left chest I and D site with packing in place Assessment : This is a 74-year-old female status post left chest wall I and D Plan: From surgical standpoint recommendation will be to continue with warm compresses Family to be instructed on appropriate wound care and packing Await cultures for appropriate antibiotics From surgical standpoint once family has been instructed on wound care and patient is cleared from medical team patient is cleared from surgical standpoint for discharge and we will follow up in outpatient setting Vitals/Labs Vital Signs Date Time Temp Pulse Resp B/P (MAP) Pulse Ox O2 Delivery O2 Flow Rate FiO2 12/21/24 08:13 98 Room Air* 0 21 12/21/24 08:00 98.8 58 17 109/64 Laboratory Tests 12/21/24 05:15 Medications Current Medications Lidocaine HCl 20 ml ONCE STAT INJ Last administered on 12/19/24at 17:12; Start 12/19/24 at 16:39; Stop 12/19/24 at 16:43; Status DC Ceftriaxone Sodium 1 gm ONCE ONCE IVPB; Start 12/19/24 at 18:30; Stop 12/19/24 at 18:25; Status DC Tetanus/ Diphtheria Toxoids Adsorbed 0.5 ml ONCE ONCE IM Last administered on 12/19/24at 18:46; Start 12/19/24 at 18:30; Stop 12/19/24 at 18:31; Status DC Acetaminophen 650 mg Q6H PRN PO; Start 12/19/24 at 18:30; Stop 01/18/25 at 18:29 Enoxaparin Sodium 40 mg DAILY SQ Last administered on 12/21/24at 08:13; Start 12/20/24 at 09:00; Stop 01/19/25 at 08:59 Famotidine 20 mg DAILY PO Last administered on 12/21/24at 08:13; Start 12/20/24 at 09:00; Stop 01/19/25 at 08:59 Hydralazine HCl 10 mg Q6H PRN IV; Start 12/19/24 at 18:30; Stop 01/18/25 at 18:29 Morphine Sulfate 2 mg Q4H PRN IVP Last administered on 12/19/24at 22:22; Start 12/19/24 at 18:30; Stop 12/26/24 at 18:29 Ondansetron HCl 4 mg Q6H PRN IV Last administered on 12/20/24at 21:14; Start 12/19/24 at 18:30; Stop 01/18/25 at 18:29 Piperacillin Sod/ Tazobactam Sod 3.375 gm Q8H IV Last administered on 12/21/24at 10:49; Start 12/19/24 at 18:30; Stop 12/29/24 at 18:29 Al Hydroxide/Mg Hydroxide 30 ml ONCE ONCE PO Last administered on 12/20/24at 03:55; Start 12/20/24 at 04:00; Stop 12/20/24 at 04:02; Status DC Meclizine HCl 25 mg BID PO Last administered on 12/21/24at 08:13; Start 12/20/24 at 09:00; Stop 01/19/25 at 08:59 Metoprolol Succinate 50 mg DAILY PO Last administered on 12/20/24at 10:45; Start 12/20/24 at 09:00; Stop 01/19/25 at 08:59 Home Med QWEEK PO; Start 12/20/24 at 09:00; Stop 01/19/25 at 08:59 Home Med DAILY PO; Start 12/20/24 at 09:00; Stop 01/19/25 at 08:59 Pantoprazole Sodium 40 mg ACBKFST PO Last administered on 12/21/24at 08:13; Start 12/20/24 at 07:30; Stop 01/19/25 at 07:29 Atorvastatin Calcium 80 mg HS PO Last administered on 12/20/24at 21:14; Start 12/20/24 at 21:00; Stop 01/19/25 at 20:59 NERISSA REZA Jr. Dec 21, 2024 11:12
[2024-12-21 22:38] LABS: ADD UA MICROSCOPIC NO; APPEARANCE,URINE CLEAR (CLEAR); GLUCOSE, URINE (UA) NEGATIVE (NEGATIVE); LEUKOCYTE ESTERASE ,URINE NEGATIVE Leu/uL (NEGATIVE); NITRATE,URINE NEGATIVE (NEGATIVE); OCCULT BLOOD,URINE NEGATIVE (NEGATIVE)
[2024-12-22 03:30] VITALS: BP 137/79; PULSE 69; RESP 16; TEMP 97.9
[2024-12-22 05:23] LABS: IMMATURE GRANULOCYTE ABSOLUTE 0.03 K/uL (0-1); NUCLEATED RED BLOOD CELLS 0.0 % (0.0-0.19); PLATELET COUNT (AUTO) 331 K/uL (130-400); RED BLOOD CELL COUNT(AUTO) 3.37 MIL/uL (4.00-5.50); RED CELL DISTRIBUTION WIDTH 13.6 % (11.0-15.5); WHITE BLOOD COUNT (AUTO) 8.9 K/uL (4.8-10.8)
[2024-12-22 05:39] LABS: ASPARTATE AMINOTRANSFERASE 18.0 U/L (10-37); CREATININE 1.0 mg/dL (0.5-1.0); GLOMERULAR FILTR. RATE CALC 59.0 mL/min (>90); GLUCOSE,RANDOM 119.0 mg/dL (70-105); SODIUM SERUM 142.0 mmol/L (136-145); TOTAL PROTEIN, SERUM 6.3 g/dL (6.0-8.3); UREA NITROGEN, BLOOD 8.0 mg/dL (7-18)
[2024-12-22] MEDS: PoTASSium chloRIDE 20MEQ ER 20 MEQ ERTAB PO ONE (06:51)
[2024-12-22 08:00] VITALS: BP 130/56; PULSE 61; RESP 19; TEMP 98.3
[2024-12-22] MEDS ORDERED: CEPH500B PO (10:06)
--- NOTE | 2024-12-22 10:11 | DS ---
Discharge Summary Hospital Course Summary: DATE OF ADMISSION:[12/19/2024] DATE OF DISCHARGE:[12/22/2024] DISPOSITION:[Home] CONDITION:[Medically stable] CONSULTANTS:[Surgeon] FOLLOW UP APPOINTMENTS:[PCP2 to 3 days] PROCEDURES:[None] IMAGING: report attached to summary MICROBIOLOGY: report attached to summary ACTIVITY:[Independent] HOME MEDICATIONS: see [facility] NEW MEDICATIONS:[Keflex 500 mg b.i.d. times 10 days] EMERGENCY INSTRUCTIONS: The patient was instructed to present to the nearest Emergency departmentr or call 911 once their symptoms will return or worsen Skiver Operator(s): Patient is74 years old female who came to emergency department with a complaint of under breast pain on left side with the past two weeks. During physical assessment patient was noted to have a abscess under the left breast. Patient was started on antibiotics Zosyn and the wound culture and blood culture was sent to the lab. WBC on admission 14.1. We also consulted Dr. Tavarez, general surgeon for possible I&D. In emergency department during the admission patient underwent I and D on 12/20/2024 and the cholesterol was sent to the lab. Today patient was cleared by surgeon to be discharged home and follow-up outpatient as needed. Patient was advised to follow up with PCP in2 to 3 days. Patient will be sent on Keflex 500 mg b.i.d. times 10 days. Today WBC 8.9. Patient denies any shortness of breath, chest pain, nausea, vomiting or any other discomfort. Procedure(s): REVIEW OF SYSTEMS CONSTITUTIONAL: Denies fevers, chills, or night sweats. No unintentional weight loss reported. NEUROLOGICAL: Denies headache, amaurosis fugax, motor weakness, sensory defi cit, vertigo/spinning sensation, gait abnormalities, or tremors. ENT: No hearing loss, otalgia, otorrhea, rhinitis, rhinorrhea, hoarseness, or sore throat. CARDIOVASCULAR: Denies any exertional angina, dyspnea on exertion, orthopnea, paroxysmal nocturnal dyspnea, palpitations, life-threatening arrhythmias, claudication. PULMONARY: Denies any shortness of breath, cough, phlegm/sputum, hemoptysis, pleuritic chest pain. SLEEP: Denies morning headaches, daytime somnolence or napping. Denies difficulty falling asleep, staying asleep, waking from sleep. Denies knowledge of snoring. GASTROINTESTINAL: Denies any type of dysphagia to either liquids or solids. Denies nausea, vomiting, pyrosis, early satiety, abdominal pain, diarrhea, constipation, or changes in stool consistency or caliber. Denies coffee-ground emesis, hematemesis, hematochezia, or melanotic stools. GENITOURINARY: Denies frequency, urgency, nocturia, hematuria or incontinence (Storage/Irritative symptoms.) Low urinary stream, straining to void, urinary intermittency or hesitancy, splitting of the voiding stream, terminal dribbling. ENDOCRINOLOGIC: Denies polyuria, polydipsia, polyphagia or heat/cold intolerances. HEMATOLOGIC: Denies thrombophilia/previous clots, or coagulopathy/bleeding disorders. ONCOLOGIC: Denies personal history of malignancy. DERMATOLOGIC: Denies rashes or pruritus. Left chest abscess s/p I and D PSYCHIATRIC: Denies any suicidal or homicidal ideation. Denies hallucinations. PHYSICAL EXAM GENERAL APPEARANCE: The patient is awake, alert, and oriented, in no acute cardiopulmonary distress. NEUROLOGICAL: Cranial nerves II-XII grossly intact. Motor is 5/5 in bilateral upper and lower extremities proximal to distal. No sensory deficits. HEENT: Face is symmetric. Pupils are equal and reactive. Extraocular movements are intact. NECK: Supple. No JVD. No thyromegaly. No submental, submandibular, pre- /postauricular, occipital or supraclavicular lymphadenopathy. CHEST: Normal chest expansion. No Telemetry. LUNGS: Absence of any rales, rhonchi or any wheezing. CARDIOVASCULAR: Regular. S1 and S2 normal. No appreciable rubs, murmurs or gallops. ABDOMEN: Soft, nontender, and nondistended. There is no rebound, voluntary guarding, or rigidity. : Deferred. No Ortiz. EXTREMITIES: Non-edematous and not cyanotic. No clubbing. Good capillary refi ll. SKIN: Left under breast wound s/p I and D Assessment/Plan: ASSESSMENT: [ Chest wall abscess, under left breast POA Leukocytosis, POA arthritis Hyperlipidemia Uncontrolled Hypertension Breast CA TOYA POA Acute dehydration POA ] PLAN: [ Continue patient in the medical-surgical floor Chest wall abscess, leukocytosis: Abscess has been drained by emergency room physician and packed. General surgery Service for evaluations. Pending further recommendations Empiric antibiotic therapy with Zosyn Pending wound culture Pending blood culture Arthritis, hypertension, hyperlipidemia: Home medication reconciled by nurse practitioner 12/20/2024 As needed analgesia with morphine Hydralazine 10 mg IV every 4 hours for systolic blood pressure greater than 160 mmHg GI prophylaxis, famotidine DVT prophylaxis, Lovenox A.m. labs] Home Medications: Reported Medications Olmesartan/Hydrochlorothiazide (Olmesartan-Hctz 40-12.5 mg Tab) 40 Mg-12.5 Mg Tablet, 1 TAB PO DAILY for 30 Days, #30 TAB 0 Refills 12/19/24 Rosuvastatin Calcium (Rosuvastatin Calcium) 40 Mg Tablet, 1 TAB PO HS for high cholesterol for 30 Days, #30 TAB 0 Refills 12/19/24 Cholecalciferol (Vitamin D3) 1,250 Mcg (14165 Unit) Cap, 1 CAP PO QWEEK for 28 Days, #4 CAP 0 Refills 12/19/24 Metoprolol Succinate (Metoprolol Succinate) 50 Mg Tab.er.24h, 1 TAB PO DAILY for 30 Days, #30 TAB 0 Refills 12/19/24 Metformin HCl (Metformin HCl) 500 Mg Tablet, 1 TAB PO BID for 30 Days, #60 TAB 0 Refills 12/19/24 Meclizine HCl (Medi-Meclizine) 25 Mg Tablet, 1 TAB PO BID for 10 Days, #30 TAB 0 Refills 12/19/24 Omeprazole (Omeprazole) 20 Mg Capsule.dr, 1 CAP PO ACBKFST for 30 Days, #30 CAP 0 Refills 12/19/24 Discontinued Reported Medications Olmesartan/Hydrochlorothiazide (Olmesartan-Hctz 40-12.5 mg Tab) 40 Mg-12.5 Mg Tablet, 1 TAB PO DAILY for 30 Days, #30 TAB 0 Refills 12/19/24 Amoxicillin/Potassium Clav (Amox Tr-K Clv 875-125 mg Tab) 875 Mg-125 Mg Tablet, 1 TAB PO BID for 10 Days, #20 TAB 0 Refills 12/19/24 Discontinued Scripts Nitrofurantoin Macrocrystal (Nitrofurantoin) 100 Mg Capsule, 1 CAP PO BID for 7 Days, #14 CAP 0 Refills Prov:GUICHO YOUSSEF MD 11/16/24 Ondansetron (Ondansetron Odt) 4 Mg Tab.rapdis, 4 MG PO Q6HPRN PRN for nausea, #15 TAB 0 Refills Prov:LUIS MANUEL HECK NP 07/26/24 Nitrofurantoin Macrocrystal (Nitrofurantoin) 100 Mg Capsule, 1 CAP PO BID for 7 Days, #14 CAP 0 Refills Prov:LUIS MANUEL HECK NP 07/26/24 Tramadol Hcl (Tramadol HCl) 50 Mg Tablet, 50 MG PO TID for pain, #15 TAB Prov:GUICHO YOUSSEF MD 07/20/24 Diclofenac Sodium (Voltaren Arthritis Pain) 1 % Gel..gram., 1 APPL TP BID for 30 Days, #400 GM apply to affected foot Prov:LAUREN LUCAS 08/07/23 Fosfomycin Tromethamine (Fosfomycin Tromethamine) 3 Gram Packet, 3 GM PO ONCE f or 1 Day, #1 PKT Prov:LAURNE LUCAS 08/07/23 Ibuprofen (Motrin/Advil) 800 Mg Tab, 800 MG PO TID, #30 TAB Prov:IRMA ELLIS MD 01/06/23 Albuterol Sulfate (Proair Digihaler) 90 Mcg Aer.pw.bas, 2 PUFF IH QID, #1 UNIT Prov:IRMA ELLIS MD 01/06/23 Time spent arranging discharge: 31-60 minutes ATTESTATION BY PHYSICIAN I have seen and examined the patient. I reviewed the documentation, medical decision making, and treatment plan as noted by the mid-level provider above. I agree with the findings and plan of care. CHRISTINE SILVESTRE MD, [facility] HEALTH PHYSICAL THERAPIST Dec 22, 2024 10:11
--- NOTE | 2024-12-22 12:10 | PN ---
GENERAL SURGERY PROGRESS NOTE Date/Time Patient Seen: [12/22/2024 09:45 AM ] Problem List: [74-year-old female with left breast abscess, incised and drain by ER provider ] Interval History: [ Patient states she has been doing significantly better Nurses doing wound care with iodoform packing daily No reported fevers or chills WBCs stable at 8.9 Pain controlled with current meds] Current Medications Medications (Trade) Dose Ordered Sig/Tito Route Start Time Stop Time Status Last Admin Dose Admin Atorvastatin Calcium (LIPItor 40MG) 80 mg HS PO 12/20/24 21:00 01/19/25 20:59 12/21/24 20:54 80 MG Enoxaparin Sodium (Lovenox) 40 mg DAILY SQ 12/20/24 09:00 01/19/25 08:59 12/22/24 08:28 40 MG Famotidine (Pepcid 20mg Tab) 20 mg DAILY PO 12/20/24 09:00 01/19/25 08:59 12/22/24 08:27 20 MG Home Med (Home Medication) DAILY PO 12/20/24 09:00 01/19/25 08:59 Home Med (Home Medication) QWEEK PO 12/20/24 09:00 01/19/25 08:59 Lidocaine HCl (Lidocaine HCl 1% 20ml Vial) 20 ml ONCE STAT INJ 12/19/24 16:39 12/19/24 16:43 DC 12/19/24 17:12 20 ML Meclizine HCl (ANTIvert 25 mg) 25 mg BID PO 12/20/24 09:00 01/19/25 08:59 12/22/24 08:27 25 MG Metoprolol Succinate (TopROL XL) 50 mg DAILY PO 12/20/24 09:00 01/19/25 08:59 12/22/24 08:27 50 MG Pantoprazole Sodium (PROTonix 40MG TAB) 40 mg ACBKFST PO 12/20/24 07:30 01/19/25 07:29 12/22/24 06:51 40 MG Piperacillin Sod/ Tazobactam Sod (Zosyn 3.375gm+NS 50ml) 3.375 gm Q8H IV 12/19/24 18:30 12/29/24 18:29 12/22/24 10:53 3.375 GM Physical Examination: GENERAL: [No acute distress, elderly female comfortably resting in bed, with at bedside] HEAD: [Normocephalic] EYES: [Normal conjunctiva.] ENT: [Hearing grossly intact.] NECK: [Supple.] LUNGS: [Clear breath sounds bilaterally.] HEART: [Normal rate and rhythm.] VASC: [No edema.] ABD: [Bowel sounds normal, soft.] : [Not examined] EXT: [No edema.] SKIN: [Left breast at skin fold with small open wound, packed with iodoform, felder rrounding skin with mild erythema but no induration or signs of a new abscess.] NEURO: [Awake, alert, and oriented x3. No focal sensory or strength deficits noted.] Vital Signs (last 8hr) Date Time Temp Pulse Resp B/P (MAP) Pulse Ox O2 Delivery O2 Flow Rate FiO2 12/22/24 08:00 98.2 61 19 130/56 98 Room Air 12/22/24 07:35 Room Air* 0 21 Laboratory: [ ] Hematology Labs: Test 12/22/24 04:09 Range/Units White Blood Count 8.9 4.8-10.8 K/uL Red Blood Count 3.37 L 4.00-5.50 MIL/uL Hemoglobin 10.6 L 12.0-16.0 g/dL Hematocrit 32.2 L 36-48 % Mean Corpuscular Volume 95.5 79-99 fL Mean Corpuscular Hemoglobin 31.5 27.0-33.0 pg Mean Corpuscular Hemoglobin Concent 32.9 32.0-36.0 g/dL Red Cell Distribution Width 13.6 11.0-15.5 % Platelet Count 331 130-400 K/uL Mean Platelet Volume 10.0 7.5-10.5 fL Immature Granulocyte % (Auto) 0.3 0-1 % Neutrophils (%) (Auto) 61.6 40.0-77.0 % Lymphocytes (%) (Auto) 24.1 21.0-51.0 % Monocytes (%) (Auto) 9.6 3.0-13.0 % Eosinophils (%) (Auto) 4.0 0.0-8.0 % Basophils (%) (Auto) 0.4 0.0-5.0 % Neutrophils # (Auto) 5.5 1.8-7.7 K/uL Lymphocytes # (Auto) 2.2 1.0-4.8 K/uL Monocytes # (Auto) 0.9 0.1-1.0 K/uL Eosinophils # (Auto) 0.36 0.00-0.70 K/uL Basophils # (Auto) 0.04 0.00-0.20 K/uL Absolute Immature Granulocyte (auto 0.03 0-1 K/uL Nucleated Red Blood Cells 0.0 0.0-0.19 % Chemistry Labs: Test 12/22/24 04:52 12/22/24 04:09 Range/Units Whole Blood Glucose 116 H 70-110 MG/DL Sodium Level 142 136-145 mmol/L Potassium Level 3.9 3.5-5.1 mmol/L Chloride Level 107 101-111 mmol/L Carbon Dioxide Level 26 21-32 mmol/L Blood Urea Nitrogen 8 7-18 mg/dL Creatinine 1.0 0.5-1.0 mg/dL Glomerular Filtration Rate Calc 59 >90 mL/min Random Glucose 119 H 70-105 mg/dL Total Calcium 8.6 8.5-10.1 mg/dL Magnesium Level 2.10 1.80-2.40 mg/dL Total Bilirubin 0.3 # 0.2-1.0 mg/dL Aspartate Amino Transf (AST/SGOT) 18 10-37 U/L Alanine Aminotransferase (ALT/SGPT) 25 12-78 U/L Alkaline Phosphatase 73 50-136 U/L Total Protein 6.3 6.0-8.3 g/dL Albumin 2.9 L 3.5-5.0 g/dL Diagnostics / Radiology: [Copy/Paste Echos/Imaging Report here] Impression and Plan: [74-year-old female with left breast abscess that was drained by ED provider Patient's condition has been improving, no signs of a new abscess formation Nurse states that family will be instructed on wound care with iodoform packing From surgical standpoint, patient may be discharged home with oral antibiotics recommended by hospitalist Follow-up with Dr. Tavarez's wound care clinic in 2 weeks to continue monitoring wound progress Dr. Tavarez updated on patient's status ] ATTESTATION BY PHYSICIAN I have seen and examined the patient. I reviewed the documentation, medical decision making, and treatment plan as noted by the mid-level provider above. I agree with the findings and plan of care. MD BRADFORD DIAZ LETICIA A APRN Dec 22, 2024 12:10
--- NOTE | 2024-12-22 12:11 | NUR ---
DISCHARGE PERIPHERAL IV REMOVED DISCHARGE EDUCATION AND INSTRUCTIONS PROVIDED TO PATIENT AND FAMILY PATIENT AWARE TO FOLLOW UP WITH PCP IN 2-3 DAYS. PATIENT AWARE TO FOLLOW UP WITH DR. WASHINGTON IN 2 WEEKS PATIENT AND FAMILY EDUCATED ON WOUND CARE PATIENT AWARE TO REGIONAL HR MANAGER NEW PRESCRIPTIONS FROM PREFERRED PHARMACY ALL QUESTIONS ANSWERED.
== END 2024-12-22 12:15 | disposition home or self-care (01) | DRG 603 ==
LOC: EDH 14:36 → EDHIP 18:16 → 3BH 12-20 17:53
PROVIDERS: ADMIT Internal Medicine; ATTEND Internal Medicine
PROC: 0H95XZZ Drainage of Chest Skin, External Approach (ICD-10-PCS; principal; 2024-12-19)
DX: L02.213 Cutaneous abscess of chest wall (principal); N17.9 Acute kidney failure, unspecified; D72.829 Elevated white blood cell count, unspecified; I10 Essential (primary) hypertension; E78.00 Pure hypercholesterolemia, unspecified; E11.65 Type 2 diabetes mellitus with hyperglycemia; E86.0 Dehydration; Z90.710 Acquired absence of both cervix and uterus; Z90.11 Acquired absence of right breast and nipple; Z85.3 Personal history of malignant neoplasm of breast; Z51.5 Encounter for palliative care; Z90.49 Acquired absence of other specified parts of digestive tract
CPT/HCPCS: 10060; 36415; 76604; 80048; 80053; 81003; 82948; 83605; 83735; 84100; 84145; 85025; 87040; 87070; 87076; 87086; 87186; 90714; 99285; G0378; J0360; J1171; J1650; J2270; J2405; J2543

== ENCOUNTER 2025-04-24 23:15 | Emergency (ER) | payer MEDICARE, MEDICAID ==
[~2025-04-24] VITALS: Ht 165.1 cm; Wt 84.8 kg
[~2025-04-24 23:15] MED LIST changes: -ALBU90AE3 IH; +CEPH500B PO; -DICL20GE TP; -FOSF3PAC4 PO; -IBUP-1493 PO; +MECL25TA39 PO; +METF-444 PO; +METO-391 PO; -NITR100C PO; +OLME-30 PO; +OMEP20CA12 PO; -ONDA-243 PO; +ROSU40TA88 PO; -TRAM50TA4 PO; +VITAD50000 PO
--- NOTE | 2025-04-24 23:37 | NUR ---
TRIAGE VITALS SHOWED BP 200/100. RECHECK OF VITALS IN FAST TRACK SHOWED 169/87. ER MD MADE AWARE. PER ER MD, HYDRALAZINE ORDER TO BE D/C.
--- NOTE | 2025-04-25 00:24 | ERN ---
ED Note History of Present Illness Stated Complaint: C/O RASH,REDNESS W/ITCHING TO FACE X 3 WKS Chief Complaint: Allergic Reaction Time Seen by MD: 23:24 Dictation: This is a 74-year-old female who came into the emergency room with her daughter with complaints of facial rash on her cheeks for the past 3 weeks. She reports redness associated with it and itching denied any insect bites. No fever chills or rigors. Denied using any new creams or changing soaps. Apparently patient has saw a physical therapist center manager 3 weeks ago and was given metronidazole cream and hydrocortisone cream. Patient stated that she has rubbed it on the face but has not seen any improvement and her itching continues relentlessly. Temperature 98.8 pulse 85 respirations 17 blood pressure 169/87 with a pulse oximetry of 97% on room air Her chronic medical problems include history of breast CA status post right mastectomy, hypertension, hypercholesterolemia and arthritis Allergies: Coded Allergies: No Known Drug Allergies (Unverified Allergy, Unknown, 11/06/19) Home Meds Active Scripts Cephalexin Monohydrate (Keflex) 500 Mg Cap, 1 CAP PO BID for 10 Days, #20 CAP 0 Refills Prov:KYREE LINDSAY METER CHANGES RECORDS CLERK 12/22/24 Reported Medications Olmesartan/Hydrochlorothiazide (Olmesartan-Hctz 40-12.5 mg Tab) 40 Mg-12.5 Mg Tablet, 1 TAB PO DAILY for 30 Days, #30 TAB 0 Refills 12/19/24 Rosuvastatin Calcium (Rosuvastatin Calcium) 40 Mg Tablet, 1 TAB PO HS for high cholesterol for 30 Days, #30 TAB 0 Refills 12/19/24 Cholecalciferol (Vitamin D3) 1,250 Mcg (31137 Unit) Cap, 1 CAP PO QWEEK for 28 Days, #4 CAP 0 Refills 12/19/24 Metoprolol Succinate (Metoprolol Succinate) 50 Mg Tab.er.24h, 1 TAB PO DAILY for 30 Days, #30 TAB 0 Refills 12/19/24 Metformin HCl (Metformin HCl) 500 Mg Tablet, 1 TAB PO BID for 30 Days, #60 TAB 0 Refills 12/19/24 Meclizine HCl (Medi-Meclizine) 25 Mg Tablet, 1 TAB PO BID for 10 Days, #30 TAB 0 Refills 12/19/24 Omeprazole (Omeprazole) 20 Mg Capsule.dr, 1 CAP PO ACBKFST for 30 Days, #30 CAP 0 Refills 12/19/24 Past Medical History Past Medical History: Arthritis, Diabetes-Type II, High Cholesterol, Hypertension, Other Additional Past Medical Hx: HX BREAST CA, RIGHT Surgical History: Other Surgical History Other: RT MASTECTOMY Family History: Negative Social History: Negative, Lives with family History: Not Applicable RN Note Reviewed/Agreed w/PFSH: Yes Review of System Dictation Constitutional: Negative for fever,chills, and weight loss Eyes: Negative for injury, pain,redness, and discharge ENT: Negative for injury,pain or swelling Cardiovascular: Negative for chest pain, palpitations, and edema Respiratory: Negative for shortness of breath, cough, and wheezing, Abdomen/GI: Negative for abdominal pain, nausea, vomiting, diarrhea, and constipation Back: Negative for injury and pain : Negative for injury, bleeding and discharge MS/Extremity: Negative for injury and deformity Skin: Positive facial rash, and itching Neuro: Negative for headache, weakness, numbness, tingling, and seizure Psych: Negative for suicide ideation, homicidal ideation, and hallucinations Initial Vital Sign VS Vital Signs Date Time Temp Pulse Resp B/P (MAP) Pulse Ox O2 Delivery O2 Flow Rate FiO2 04/24/25 23:18 97.9 87 20 201/110 96 Room Air 04/24/25 23:28 0 21 Physical Exam Dictation General: awake, alert, NAD morbidly obese Head/Face: Normocephalic, atraumatic Eyes: PERRL, EOMI, vision at baseline ENT: oral cavity clear, TMs clear, no signs of infection Neck: Trachea midline, supple, no nuchal rigidity Cardiovascular: RRR, normal S1/S2, No MRGs, no JVD Respiratory: CTAB, no respiratory distress, No rales or wheezes Abdomen: Soft, non-tender, non-distended, normal bowel sounds, no guarding or rebound. Skin: Warm, dry, normal turgor, papular rash on the face mostly cheeks with a erythema. In places it almost looks erythematous rash. No purulence no fluct uation the rash does not extend on the nose MS/Extremity: Pulses equal, no cyanosis, neurovascular intact, FROM Neuro: COAx4, GCS 15, strength 5/5, CN 2-12 intact, normal cerebellar exam, normal gait, Psych: Normal behavior, mood, and affect normal Extremities-trace edema without any palpable cords, Homans sign is negative ED Course ED Course Orders Procedure Category Date Status Time Hydralazine 20mg Inj PHA 04/24/25 Complete (Apresoline 20mg In 23:30 Triamcinolon Acet PHA 04/25/25 Complete 0.1% Crm 15g (Kenalog/ 00:30 Hydroxyzine 10mg Tab PHA 04/25/25 Complete (Atarax 10mg Tab) 00:30 Prednisone 20mg Tab PHA 04/25/25 Complete (Deltasone/Orasone 2 00:30 Current Medications Medications (Trade) Dose Ordered Sig/Tito Route PRN Reason Start Time Stop Time Status Last Admin Dose Admin Hydralazine HCl (APRESOLine 20MG INJ) 15 mg ONCE ONCE IV 04/24/25 23:30 04/24/25 23:33 DC Hydroxyzine HCl (ATArax 10MG TAB) 10 mg ONCE ONCE PO 04/25/25 00:30 04/25/25 00:31 DC 04/25/25 00:36 Prednisone (deltaSONE/ oraSONE 20MG TAB) 20 mg ONCE ONCE PO 04/25/25 00:30 04/25/25 00:31 DC 04/25/25 00:36 Triamcinolone Acetonide (Kenalog/ Aristocort) 1 appl ONCE ONCE TP 04/25/25 00:30 04/25/25 00:31 DC 04/25/25 00:36 Vital Signs Date Time Temp Pulse Resp B/P (MAP) Pulse Ox O2 Delivery O2 Flow Rate FiO2 04/24/25 23:28 98.8 85 17 169/87 97 Room Air* 0 21 04/24/25 23:18 97.9 87 20 201/110 96 Room Air Medical Decision Making MDM Differential diagnosis- acne, allergic reaction, rosacea, butterfly rash of systemic lupus erythematosus, contact dermatitis Environmental allergies, insect bite, allergic reaction to a drug, infectious rash, angioedema, anaphylaxis This is a 74-year-old female who came into the emergency room with her daughter with complaints of facial rash on her cheeks for the past 3 weeks. She reports redness associated with it and itching denied any insect bites. No fever chills or rigors. Denied using any new creams or changing soaps. Apparently patient has saw a physical therapist center manager 3 weeks ago and was given metronidazole cream and hydrocortisone cream. Patient stated that she has rubbed it on the face but has not seen any improvement and her itching continues relentlessly. Temperature 98.8 pulse 85 respirations 17 blood pressure 169/87 with a pulse oximetry of 97% on room air Her chronic medical problems include history of breast CA status post right mastectomy, hypertension, hypercholesterolemia and arthritis Patient responded to Atarax and prednisone and feels significantly better. Discharge her with a few days of the same Previous outside records reviewed: Old ER visits. Risk of complication and/or morbidity or mortality of patient management: None Medications-Per medication reconciliation Need for hospitalization: Patient does not meet criteria for hospitalization. Need for emergency major/minor surgery: No There are no social concerns with this patient. Prescription drug management Prescriptions will include symptomatic care Patient's prior external medical records from other ER visits were reviewed by me as indicated. Prior testing and results from previous visits were reviewed. Prior tests were taken into account with medical decision making and resource utilization, independent historian/historians were used to obtain complete medical history. I independently interpreted the test that were performed, results were reviewed by me and considered findings on radiology if ordered. Medical management and examination interpretation discussions were had by me with other qualified healthcare professionals as indicated for the patient's care. Problem List Problem List: (1) Rosacea DX & DISP Disposition: Discharge Departure Impression: Primary Impression: Rosacea Condition: Stable Scripts Hydroxyzine HCl (Atarax) 25 Mg Tab 1 CAP PO TID for itching for 5 Days, #15 CAP 0 Refills Prov: GUICHO YOUSSEF MD 04/25/25 Prednisone (Prednisone) 20 Mg Tablet 1 TAB PO AD for 6 Days, #14 TAB 0 Refills TAKE 1 TAB BY MOUTH THREE TIMES PER DAY X3 DAYS, THEN TAKE 1 TAB BY MOUTH TWICE A DAY X2 DAYS, THEN TAKE 1 TAB BY MOUTH ONCE A DAY X1 DAY. Prov: GUICHO YOUSSEF MD 04/25/25 Additional Instructions: Patient and the caregiver have been informed of all the diagnostic tests and the imaging conducted during the today's visit to the emergency room and has verbalized understanding of the results I have personally reviewed and interpreted all diagnostic exams performed here in the ER today as well as the vital signs documented by the nursing staff. The patient is now being discharged to home and should follow up with the primary care physician or the specialist as directed by the ER staff. Referrals: SAMARA PRABHAKAR MD (PCP) GUICHO YOUSSEF MD Apr 25, 2025 00:24
[2025-04-25] MEDS: TRIAMCINOLONE ACETONIDE 0.1% CREAM 15GM TP ONE (00:36)
[2025-04-25] MEDS ORDERED: HYD25 PO (01:28)
[2025-04-25] MEDS ORDERED: PRED20TA3 PO (01:28)
[2025-04-25 01:44] VITALS: BP 146/82; PULSE 80; RESP 18; TEMP 98.6; O2SAT 98
== END 2025-04-25 01:45 | disposition home or self-care (01) ==
LOC: EDH 23:15
DX: L71.9 Rosacea, unspecified (principal); E11.9 Type 2 diabetes mellitus without complications; E78.00 Pure hypercholesterolemia, unspecified; I10 Essential (primary) hypertension; M19.90 Unspecified osteoarthritis, unspecified site; E66.01 Morbid (severe) obesity due to excess calories; Z79.899 Other long term (current) drug therapy; Z79.84 Long term (current) use of oral hypoglycemic drugs; Z85.3 Personal history of malignant neoplasm of breast; Z90.11 Acquired absence of right breast and nipple
CPT/HCPCS: 99284